=== PATIENT | female | born 1975 | race Caucasian/White ===

== ENCOUNTER 2017-01-04 13:26 | Inpatient (IN) | payer MEDICAID ==
[~2017-01-04] VITALS: Ht 172.7 cm; Wt 68.0 kg
[~2017-01-04 13:26] MED LIST: DIVA500T52 PO; FERR-89 PO; QUET300T2 PO; VITAD1000 PO
[2017-01-04 14:53] VITALS: BP 113/63
[2017-01-04] MEDS ORDERED: LORazepam 2 MG TABLET PO PRN (15:00)
[2017-01-04] MEDS ORDERED: FluPHENAZine HCL 5 MG TABLET PO PRN (15:15)
[2017-01-04 16:32] VITALS: BP 111/63
[2017-01-05 04:16] VITALS: BP 114/78
[2017-01-05] MEDS: FERROUS SULFATE 325 MG EC TABLET PO SCH ×2 (06:41→16:12)
[2017-01-05] MEDS: CHOLECALCIFEROL (VIT D3) 1,000 UNITS TABLET PO SCH (08:41)
[2017-01-05 08:46] VITALS: BP 118/69
[2017-01-05 08:51] LABS: BASOPHILS % (AUTO) 0.6 % (0.0-2.0); EOSINOPHILS % (AUTO) 1.8 % (1.0-6.0); HEMATOCRIT 34.4 % (36-46); HEMOGLOBIN 11.1 g/dL (12.0-16.0); LYMPHOCYTES # (AUTO) 1.5 K/uL (1.0-4.8); LYMPHOCYTES % (AUTO) 31.6 % (22.0-44.0); MEAN CORPUSCULAR HEMOGLOBIN 28.8 pg (26.0-34.0); MEAN CORPUSCULAR HGB CONC 32.4 G/dL (31.0-37.0); MEAN CORPUSCULAR VOLUME 89 fL (80-100); MONOCYTES # (AUTO) 0.8 K/uL (0.1-1.0); MONOCYTES % (AUTO) 16.3 % (2.0-9.0); NEUTROPHILS # (AUTO) 2.4 K/uL (1.8-7.7); NEUTROPHILS % (AUTO) 49.7 % (40.0-70.0); PLATELET COUNT (AUTO) 208 K/uL (150-450); RED BLOOD CELL COUNT(AUTO) 3.86 MIL/uL (4.00-5.20); RED CELL DISTRIBUTION WIDTH 15.9 % (11.5-14.5); WHITE BLOOD COUNT (AUTO) 4.8 K/uL (4.5-11.0)
[2017-01-05 09:42] LABS: ALANINE AMINOTRANSFERASE 23 U/L (12-78); ALBUMIN 3.8 g/dL (3.4-5.0); ANION GAP 7 mmol/L (8-16); ASPARTATE AMINOTRANSFERASE 23 U/L (15-37); BILIRUBIN,TOTAL 0.2 mg/dL (0.1-1.0); CARBON DIOXIDE 30 mmol/L (22-29); CHLORIDE 102 mmol/L (98-107); CREATININE 0.78 mg/dL (0.60-1.30); GLOMERULAR FILTR. RATE CALC > 60 mL/min (>60); POTASSIUM 3.6 mmol/L (3.5-5.1); SODIUM SERUM 139 mmol/L (136-145); TOTAL PROTEIN, SERUM 7.2 g/dL (6.4-8.2); UREA NITROGEN, BLOOD 10 mg/dL (7-18)
[2017-01-05] MEDS ORDERED: IBUPROFEN 400 MG TABLET PO PRN (10:45)
[2017-01-05] MEDS ORDERED: ACETAMINOPHEN 325 MG TABLET PO PRN (10:45)
[2017-01-05] MEDS: NICOTINE 7 MG/24 HOUR PATCH TD SCH (12:23)
[2017-01-05 16:23] VITALS: BP 100/51
[2017-01-05] MEDS ORDERED: FERROUS SULFATE 325 MG EC TABLET PO SCH (17:00)
[2017-01-06] MEDS: FERROUS SULFATE 325 MG EC TABLET PO SCH ×2 (07:00→16:10)
[2017-01-06 07:13] VITALS: BP 148/91
[2017-01-06] MEDS: NICOTINE 7 MG/24 HOUR PATCH TD SCH (09:00)
[2017-01-06] MEDS: CHOLECALCIFEROL (VIT D3) 1,000 UNITS TABLET PO SCH (09:00)
[2017-01-06] MEDS: QUEtiapine FUMARATE 300 MG TABLET PO SCH ×2 (09:00→16:10)
[2017-01-06] MEDS ORDERED: CHOLECALCIFEROL (VIT D3) 1,000 UNITS TABLET PO SCH (09:00)
[2017-01-07] MEDS: FERROUS SULFATE 325 MG EC TABLET PO SCH ×2 (06:53→16:18)
[2017-01-07] MEDS: QUEtiapine FUMARATE 300 MG TABLET PO SCH ×2 (09:00→16:17)
[2017-01-07] MEDS: NICOTINE 7 MG/24 HOUR PATCH TD SCH (09:00)
[2017-01-07] MEDS: CHOLECALCIFEROL (VIT D3) 1,000 UNITS TABLET PO SCH (09:00)
[2017-01-07 18:11] VITALS: BP 112/76
[2017-01-08 06:10] VITALS: BP 109/65
[2017-01-08] MEDS: FERROUS SULFATE 325 MG EC TABLET PO SCH ×2 (06:42→17:12)
[2017-01-08] MEDS: NICOTINE 7 MG/24 HOUR PATCH TD SCH (09:00)
[2017-01-08] MEDS: QUEtiapine FUMARATE 300 MG TABLET PO SCH ×2 (09:11→17:12)
[2017-01-08] MEDS: CHOLECALCIFEROL (VIT D3) 1,000 UNITS TABLET PO SCH (09:11)
[2017-01-09] MEDS: FERROUS SULFATE 325 MG EC TABLET PO SCH (06:43)
[2017-01-09 08:26] VITALS: BP 118/66
[2017-01-09] MEDS: NICOTINE 7 MG/24 HOUR PATCH TD SCH (08:40)
[2017-01-09] MEDS: CHOLECALCIFEROL (VIT D3) 1,000 UNITS TABLET PO SCH (08:44)
[2017-01-09] MEDS: QUEtiapine FUMARATE 300 MG TABLET PO SCH (08:44)
[2017-01-09] MEDS ORDERED: QUET300T2 PO (09:13)
== END 2017-01-09 14:42 | disposition home or self-care (01) | DRG 750 ==
LOC: B3A 15:28
PROVIDERS: ADMIT Psychiatry & Neurology Psychiatry; ATTEND Psychiatry & Neurology Psychiatry
DX: F25.0 Schizoaffective disorder, bipolar type (principal); R45.851 Suicidal ideations; F15.20 Other stimulant dependence, uncomplicated; J45.909 Unspecified asthma, uncomplicated; E55.9 Vitamin D deficiency, unspecified; D64.9 Anemia, unspecified; Z71.51 Drug abuse counseling and surveillance of drug abuser; F17.200 Nicotine dependence, unspecified, uncomplicated; Z62.819 Personal history of unspecified abuse in childhood

== ENCOUNTER 2017-01-25 05:20 | Inpatient (IN) | payer MEDICAID, OTHER ==
[~2017-01-25] VITALS: Ht 170.2 cm; Wt 67.1 kg
[~2017-01-25 05:20] MED LIST changes: -DIVA500T52 PO; -FERR-89 PO; +FERS325 PO
[2017-01-25 05:55] LABS: BASOPHILS # (AUTO) 0.09 K/uL (0.00-0.20); BASOPHILS % (AUTO) 1.2 % (0.0-2.0); EOSINOPHILS # (AUTO) 0.12 K/uL (0.00-0.70); EOSINOPHILS % (AUTO) 1.74 % (1.0-6.0); HEMATOCRIT 31.6 % (36-46); HEMOGLOBIN 10.6 g/dL (12.0-16.0); LYMPHOCYTES % (AUTO) 27.8 % (22.0-44.0); MEAN CORPUSCULAR HEMOGLOBIN 28.9 pg (26.0-34.0); MEAN CORPUSCULAR HGB CONC 33.5 G/dL (31.0-37.0); MEAN CORPUSCULAR VOLUME 86 fL (80-100); MONOCYTES # (AUTO) 0.8 K/uL (0.1-1.0); MONOCYTES % (AUTO) 11.1 % (2.0-9.0); NEUTROPHILS # (AUTO) 4.1 K/uL (1.8-7.7); NEUTROPHILS % (AUTO) 58.1 % (40.0-70.0); PLATELET COUNT (AUTO) 208 K/uL (150-450); RED BLOOD CELL COUNT(AUTO) 3.65 MIL/uL (4.00-5.20); RED CELL DISTRIBUTION WIDTH 14.9 % (11.5-14.5)
[2017-01-25 06:03] LABS: ANION GAP 11 mmol/L (8-16); CALCIUM, TOTAL 8.7 mg/dL (8.8-10.5); CARBON DIOXIDE 28 mmol/L (22-29); CHLORIDE 101 mmol/L (98-107); GLOMERULAR FILTR. RATE CALC > 60 mL/min (>60); POTASSIUM 3.3 mmol/L (3.5-5.1); SODIUM SERUM 140 mmol/L (136-145); UREA NITROGEN, BLOOD 8 mg/dL (7-18)
[2017-01-25 06:11] LABS: ALANINE AMINOTRANSFERASE 24 U/L (12-78); ALBUMIN 3.7 g/dL (3.4-5.0); ASPARTATE AMINOTRANSFERASE 21 U/L (15-37); BILIRUBIN,TOTAL 0.3 mg/dL (0.1-1.0); TOTAL PROTEIN, SERUM 7.7 g/dL (6.4-8.2)
[2017-01-25] MEDS ORDERED: LORazepam 2 MG TABLET PO PRN ×2 (06:15→07:45)
[2017-01-25] MEDS ORDERED: HALOPERIDOL 5 MG TABLET PO PRN ×2 (06:15→07:45)
[2017-01-25] MEDS ORDERED: ZOLPIDEM TARTRATE 10 MG TABLET PO PRN ×2 (06:15→07:45)
[2017-01-25] MEDS ORDERED: LORazepam 2 MG/ML VIAL IM ONE (07:45)
[2017-01-25] MEDS ORDERED: HALOPERIDOL LACTATE 5 MG/ML VIAL IM ONE (07:45)
[2017-01-25 16:10] VITALS: BP 108/80
[2017-01-25] MEDS: QUEtiapine FUMARATE 300 MG TABLET PO SCH (16:26)
[2017-01-25] MEDS ORDERED: POTASSIUM CHLORIDE 20 MEQ ER TABLET PO ONE (20:30)
[2017-01-25] MEDS ORDERED: ACETAMINOPHEN 325 MG TABLET PO PRN (21:30)
[2017-01-25] MEDS ORDERED: ALBUTEROL SULFATE HFA 90 MCG/PUFF 8 GM INHALER IH PRN (21:30)
[2017-01-25] MEDS ORDERED: IBUPROFEN 400 MG TABLET PO PRN (21:30)
[2017-01-26 06:10] VITALS: BP 110/78
[2017-01-26] MEDS: FERROUS SULFATE 325 MG EC TABLET PO SCH ×2 (06:24→15:44)
[2017-01-26] MEDS: QUEtiapine FUMARATE 300 MG TABLET PO SCH ×2 (08:28→15:44)
[2017-01-26] MEDS: CHOLECALCIFEROL (VIT D3) 1,000 UNITS TABLET PO SCH (08:28)
[2017-01-26 08:35] VITALS: BP 121/74
[2017-01-26 16:00] VITALS: BP 114/72
[2017-01-27 06:50] VITALS: BP 111/87
[2017-01-27] MEDS: FERROUS SULFATE 325 MG EC TABLET PO SCH ×2 (07:15→16:22)
[2017-01-27 08:54] VITALS: BP 115/68
[2017-01-27] MEDS: QUEtiapine FUMARATE 300 MG TABLET PO SCH ×2 (09:00→17:00)
[2017-01-27] MEDS: CHOLECALCIFEROL (VIT D3) 1,000 UNITS TABLET PO SCH (09:00)
[2017-01-27 16:05] VITALS: BP 116/70
[2017-01-28] MEDS: FERROUS SULFATE 325 MG EC TABLET PO SCH ×2 (06:33→16:46)
[2017-01-28 06:37] VITALS: BP 119/60
[2017-01-28] MEDS: QUEtiapine FUMARATE 300 MG TABLET PO SCH ×2 (08:23→17:00)
[2017-01-28] MEDS: CHOLECALCIFEROL (VIT D3) 1,000 UNITS TABLET PO SCH (08:23)
[2017-01-28 08:26] VITALS: BP 122/70
[2017-01-28 08:57] LABS: HEMOGLOBIN A1C 5.3 % (4.5-6.2)
[2017-01-28 09:08] LABS: ALANINE AMINOTRANSFERASE 19 U/L (12-78); ALBUMIN 3.8 g/dL (3.4-5.0); ANION GAP 6 mmol/L (8-16); ASPARTATE AMINOTRANSFERASE 17 U/L (15-37); BILIRUBIN,TOTAL 0.2 mg/dL (0.1-1.0); CALCIUM, TOTAL 8.8 mg/dL (8.8-10.5); CARBON DIOXIDE 30 mmol/L (22-29); CHLORIDE 101 mmol/L (98-107); CHOL/HDL RATIO 2.7 (3.9-5.7); CREATININE 0.62 mg/dL (0.60-1.30); GLOMERULAR FILTR. RATE CALC > 60 mL/min (>60); POTASSIUM 4.2 mmol/L (3.5-5.1); SODIUM SERUM 137 mmol/L (136-145); THYROID STIMULATING HORMONE 1.46 uIU/mL (0.36-3.74); TOTAL PROTEIN, SERUM 7.6 g/dL (6.4-8.2); UREA NITROGEN, BLOOD 10 mg/dL (7-18)
[2017-01-28 16:15] VITALS: BP 109/74
[2017-01-29 04:18] VITALS: BP 112/76
[2017-01-29] MEDS: FERROUS SULFATE 325 MG EC TABLET PO SCH ×2 (06:37→16:38)
[2017-01-29] MEDS: CHOLECALCIFEROL (VIT D3) 1,000 UNITS TABLET PO SCH (08:25)
[2017-01-29] MEDS: QUEtiapine FUMARATE 300 MG TABLET PO SCH ×2 (08:25→17:00)
[2017-01-29 16:00] VITALS: BP 101/63
[2017-01-29 16:05] VITALS: BP 103/63
[2017-01-29] MEDS: QUEtiapine FUMARATE 200 MG TABLET PO SCH (21:00)
[2017-01-30 03:44] VITALS: BP 112/63
[2017-01-30] MEDS: FERROUS SULFATE 325 MG EC TABLET PO SCH ×2 (06:47→16:24)
[2017-01-30 08:06] VITALS: BP 139/83
[2017-01-30] MEDS: QUEtiapine FUMARATE 200 MG TABLET PO SCH ×2 (08:33→20:30)
[2017-01-30] MEDS: CHOLECALCIFEROL (VIT D3) 1,000 UNITS TABLET PO SCH (08:34)
[2017-01-30 16:11] VITALS: BP 104/58
[2017-01-31 06:23] VITALS: BP 110/76
[2017-01-31] MEDS: FERROUS SULFATE 325 MG EC TABLET PO SCH ×2 (06:57→16:29)
[2017-01-31] MEDS: CHOLECALCIFEROL (VIT D3) 1,000 UNITS TABLET PO SCH (08:12)
[2017-01-31] MEDS: QUEtiapine FUMARATE 200 MG TABLET PO SCH ×2 (08:12→21:00)
[2017-01-31 16:00] VITALS: BP 105/71
[2017-02-01] MEDS: FERROUS SULFATE 325 MG EC TABLET PO SCH ×2 (06:41→17:03)
[2017-02-01 07:00] VITALS: BP 110/72
[2017-02-01 08:26] VITALS: BP 142/109
[2017-02-01] MEDS: CHOLECALCIFEROL (VIT D3) 1,000 UNITS TABLET PO SCH ×2 (08:43→08:56)
[2017-02-01] MEDS: QUEtiapine FUMARATE 200 MG TABLET PO SCH ×2 (08:43→08:56)
[2017-02-01] MEDS: QUEtiapine FUMARATE 300 MG TABLET PO SCH ×2 (20:11→20:21)
[2017-02-02] MEDS: FERROUS SULFATE 325 MG EC TABLET PO SCH ×2 (06:20→16:06)
[2017-02-02 08:22] VITALS: BP 121/82
[2017-02-02] MEDS: QUEtiapine FUMARATE 200 MG TABLET PO SCH (08:37)
[2017-02-02] MEDS: CHOLECALCIFEROL (VIT D3) 1,000 UNITS TABLET PO SCH (08:37)
[2017-02-02 16:09] VITALS: BP 108/65
[2017-02-02] MEDS: QUEtiapine FUMARATE 300 MG TABLET PO SCH (21:00)
[2017-02-03 05:44] VITALS: BP 117/68
[2017-02-03] MEDS: FERROUS SULFATE 325 MG EC TABLET PO SCH ×2 (06:19→16:17)
[2017-02-03] MEDS: CHOLECALCIFEROL (VIT D3) 1,000 UNITS TABLET PO SCH (08:54)
[2017-02-03] MEDS: VALPROIC ACID 250 MG CAPSULE PO SCH (08:54)
[2017-02-03] MEDS: QUEtiapine FUMARATE 200 MG TABLET PO SCH (08:54)
[2017-02-03 16:03] VITALS: BP 119/76
[2017-02-03] MEDS: QUEtiapine FUMARATE 300 MG TABLET PO SCH (20:56)
[2017-02-04 06:20] VITALS: BP 115/72
[2017-02-04] MEDS: FERROUS SULFATE 325 MG EC TABLET PO SCH ×2 (06:25→16:53)
[2017-02-04] MEDS: VALPROIC ACID 250 MG CAPSULE PO SCH (08:41)
[2017-02-04] MEDS: QUEtiapine FUMARATE 200 MG TABLET PO SCH (08:41)
[2017-02-04] MEDS: CHOLECALCIFEROL (VIT D3) 1,000 UNITS TABLET PO SCH (08:41)
[2017-02-04 08:52] VITALS: BP 113/80
[2017-02-04 16:24] VITALS: BP 111/63
[2017-02-04] MEDS: QUEtiapine FUMARATE 300 MG TABLET PO SCH (20:24)
[2017-02-05 06:29] VITALS: BP 115/65
[2017-02-05] MEDS: FERROUS SULFATE 325 MG EC TABLET PO SCH ×2 (06:42→16:43)
[2017-02-05 08:05] VITALS: BP 115/65
[2017-02-05] MEDS: QUEtiapine FUMARATE 200 MG TABLET PO SCH (08:39)
[2017-02-05] MEDS: VALPROIC ACID 250 MG CAPSULE PO SCH (08:39)
[2017-02-05] MEDS: CHOLECALCIFEROL (VIT D3) 1,000 UNITS TABLET PO SCH (08:39)
[2017-02-05 16:00] VITALS: BP 110/68
[2017-02-05] MEDS: QUEtiapine FUMARATE 300 MG TABLET PO SCH (20:21)
[2017-02-06 06:29] VITALS: BP 116/79
[2017-02-06] MEDS: FERROUS SULFATE 325 MG EC TABLET PO SCH (06:37)
[2017-02-06] MEDS ORDERED: ALBU8HFA IH (08:24)
[2017-02-06] MEDS ORDERED: VALP5L PO (08:24)
[2017-02-06] MEDS ORDERED: QUET200T PO ×2 (08:24)
[2017-02-06 08:31] VITALS: BP 126/81
[2017-02-06] MEDS: QUEtiapine FUMARATE 200 MG TABLET PO SCH (08:50)
[2017-02-06] MEDS: VALPROIC ACID 250 MG CAPSULE PO SCH (08:50)
[2017-02-06] MEDS: CHOLECALCIFEROL (VIT D3) 1,000 UNITS TABLET PO SCH (08:50)
== END 2017-02-06 14:00 | disposition home or self-care (01) | DRG 750 ==
LOC: EMS 05:21 → B3A 06:02
PROVIDERS: ADMIT Psychiatry & Neurology Psychiatry; ATTEND Psychiatry & Neurology Psychiatry
DX: F25.0 Schizoaffective disorder, bipolar type (principal); R45.851 Suicidal ideations; F15.20 Other stimulant dependence, uncomplicated; G80.9 Cerebral palsy, unspecified; J45.909 Unspecified asthma, uncomplicated; E87.6 Hypokalemia; D64.9 Anemia, unspecified; Z62.819 Personal history of unspecified abuse in childhood; F99 Mental disorder, not otherwise specified; F17.210 Nicotine dependence, cigarettes, uncomplicated; Z71.6 Tobacco abuse counseling; Z71.41 Alcohol abuse counseling and surveillance of alcoholic; Z71.51 Drug abuse counseling and surveillance of drug abuser; Z72.89 Other problems related to lifestyle; Z79.51 Long term (current) use of inhaled steroids; Z79.899 Other long term (current) drug therapy
CPT/HCPCS: 83036; 84439; 84443; 96372; 99285; G0480; J1630; J2060

== ENCOUNTER 2017-02-10 17:54 | Inpatient (IN) | payer MEDICAID, OTHER ==
[~2017-02-10] VITALS: Ht 175.3 cm; Wt 83.0 kg
[~2017-02-10 17:54] MED LIST changes: +FERR-89 PO; -FERS325 PO; +QUET200T PO; -QUET300T2 PO; +VALP250S23 PO
[2017-02-10] MEDS ORDERED: QUET300T2 PO (18:57)
[2017-02-10] MEDS ORDERED: HALOPERIDOL LACTATE 5 MG/ML VIAL IM ONE (19:00)
[2017-02-10] MEDS ORDERED: DiphenhydrAMINE HCL 50 MG/ML VIAL ONE (19:00)
[2017-02-10] MEDS ORDERED: LORazepam 2 MG/ML VIAL IM ONE (19:00)
[2017-02-10] MEDS ORDERED: DiphenhydrAMINE HCL 50 MG/ML VIAL IM ONE ×2 (19:00→19:15)
[2017-02-10 20:00] LABS: APPEARANCE,URINE CLOUDY (CLEAR); GLUCOSE, URINE (UA) NEGATIVE (NEGATIVE); KETONES,URINE NEGATIVE (NEGATIVE); LEUKOCYTE ESTERASE ,URINE NEGATIVE (NEGATIVE); OCCULT BLOOD,URINE NEGATIVE (NEGATIVE); PH,URINE 7.5 (5.0-8.0); PROTEIN,URINE NEGATIVE (NEGATIVE)
[2017-02-10 20:01] LABS: ADD UA MICROSCOPIC NO
[2017-02-10 20:20] LABS: ANION GAP 9 mmol/L (8-16); CALCIUM, TOTAL 8.4 mg/dL (8.8-10.5); CARBON DIOXIDE 27 mmol/L (22-29); CHLORIDE 105 mmol/L (98-107); CREATININE 0.74 mg/dL (0.60-1.30); GLOMERULAR FILTR. RATE CALC > 60 mL/min (>60); POTASSIUM 3.3 mmol/L (3.5-5.1); SODIUM SERUM 141 mmol/L (136-145); UREA NITROGEN, BLOOD 10 mg/dL (7-18)
[2017-02-10 20:21] LABS: BASOPHILS % (AUTO) 0.5 % (0.0-2.0); EOSINOPHILS % (AUTO) 0.3 % (1.0-6.0); HEMATOCRIT 31.9 % (36-46); HEMOGLOBIN 10.2 g/dL (12.0-16.0); LYMPHOCYTES # (AUTO) 0.9 K/uL (1.0-4.8); LYMPHOCYTES % (AUTO) 17.7 % (22.0-44.0); MEAN CORPUSCULAR HEMOGLOBIN 27.6 pg (26.0-34.0); MEAN CORPUSCULAR VOLUME 86 fL (80-100); MONOCYTES # (AUTO) 0.5 K/uL (0.1-1.0); MONOCYTES % (AUTO) 10.7 % (2.0-9.0); NEUTROPHILS # (AUTO) 3.7 K/uL (1.8-7.7); NEUTROPHILS % (AUTO) 70.8 % (40.0-70.0); PLATELET COUNT (AUTO) 194 K/uL (150-450); RED BLOOD CELL COUNT(AUTO) 3.69 MIL/uL (4.00-5.20); WHITE BLOOD COUNT (AUTO) 5.2 K/uL (4.5-11.0)
[2017-02-10 20:26] LABS: ALANINE AMINOTRANSFERASE 343 U/L (12-78); ALBUMIN 3.6 g/dL (3.4-5.0); ASPARTATE AMINOTRANSFERASE 368 U/L (15-37); BILIRUBIN,TOTAL 0.2 mg/dL (0.1-1.0); TOTAL PROTEIN, SERUM 7.4 g/dL (6.4-8.2)
[2017-02-10 21:40] VITALS: BP 124/72
[2017-02-10] MEDS ORDERED: POTASSIUM CHLORIDE 20 MEQ ER TABLET PO ONE (22:00)
[2017-02-11 07:18] VITALS: BP 123/66
[2017-02-11] MEDS ORDERED: POTASSIUM CHLORIDE 20 MEQ ER TABLET PO ONE (08:00)
[2017-02-11] MEDS: HALOPERIDOL 5 MG TABLET PO PRN ×2 (12:58→17:29)
[2017-02-11] MEDS: LORazepam 2 MG TABLET PO PRN ×2 (12:58→17:29)
[2017-02-11] MEDS ORDERED: ACETAMINOPHEN 325 MG TABLET PO PRN (20:15)
[2017-02-11] MEDS ORDERED: ALBUTEROL SULFATE HFA 90 MCG/PUFF 8 GM INHALER IH PRN (20:15)
[2017-02-11] MEDS: QUEtiapine FUMARATE 300 MG TABLET PO SCH (20:35)
[2017-02-12] MEDS: FERROUS SULFATE 325 MG EC TABLET PO SCH ×2 (06:49→17:53)
[2017-02-12 08:24] LABS: THYROID STIMULATING HORMONE 2.48 uIU/mL (0.36-3.74)
[2017-02-12 08:26] LABS: HEMOGLOBIN A1C 5.2 % (4.5-6.2)
[2017-02-12] MEDS: QUEtiapine FUMARATE 200 MG TABLET PO SCH (08:45)
[2017-02-12] MEDS: CHOLECALCIFEROL (VIT D3) 1,000 UNITS TABLET PO SCH (08:45)
[2017-02-12] MEDS ORDERED: VALPROIC ACID 250 MG/5 ML SYRUP UDCUP PO SCH (09:00)
[2017-02-12] MEDS: LORazepam 2 MG TABLET PO PRN (09:05)
[2017-02-12 09:58] LABS: CHOL/HDL RATIO 2.2 (3.9-5.7)
[2017-02-12] MEDS ORDERED: DiphenhydrAMINE HCL 50 MG/ML VIAL ONE (12:11)
[2017-02-12] MEDS ORDERED: DiphenhydrAMINE HCL 50 MG/ML VIAL IM ONE ×2 (12:15→16:00)
[2017-02-12 16:00] VITALS: BP 149/106
[2017-02-12 16:05] VITALS: BP 109/89
[2017-02-12 16:20] VITALS: BP 123/75
[2017-02-12 16:30] VITALS: BP 134/66
[2017-02-12 16:45] VITALS: BP 121/89
[2017-02-12] MEDS: BENZTROPINE MESYLATE 0.5 MG TABLET PO SCH (17:53)
[2017-02-12] MEDS: QUEtiapine FUMARATE 300 MG TABLET PO SCH (21:17)
[2017-02-12] MEDS: VALPROIC ACID 250 MG/5 ML SYRUP UDCUP PO SCH (21:17)
[2017-02-13] MEDS: FERROUS SULFATE 325 MG EC TABLET PO SCH ×2 (06:50→17:01)
[2017-02-13 08:18] VITALS: BP 119/69
[2017-02-13] MEDS: CHOLECALCIFEROL (VIT D3) 1,000 UNITS TABLET PO SCH (09:00)
[2017-02-13] MEDS: BENZTROPINE MESYLATE 0.5 MG TABLET PO SCH ×2 (09:00→17:01)
[2017-02-13] MEDS: QUEtiapine FUMARATE 200 MG TABLET PO SCH (09:00)
[2017-02-13 16:26] VITALS: BP 141/72
[2017-02-13] MEDS: QUEtiapine FUMARATE 300 MG TABLET PO SCH (21:00)
[2017-02-13] MEDS: VALPROIC ACID 250 MG/5 ML SYRUP UDCUP PO SCH (21:00)
[2017-02-14 06:17] VITALS: BP 110/76
[2017-02-14] MEDS: FERROUS SULFATE 325 MG EC TABLET PO SCH ×2 (06:45→16:44)
[2017-02-14 08:03] VITALS: BP 112/65
[2017-02-14] MEDS: CHOLECALCIFEROL (VIT D3) 1,000 UNITS TABLET PO SCH (08:32)
[2017-02-14] MEDS: BENZTROPINE MESYLATE 0.5 MG TABLET PO SCH ×2 (08:32→16:44)
[2017-02-14] MEDS: QUEtiapine FUMARATE 200 MG TABLET PO SCH (08:33)
[2017-02-14] MEDS: LORazepam 2 MG TABLET PO PRN (08:33)
[2017-02-14 16:06] VITALS: BP 101/61
[2017-02-14] MEDS: VALPROIC ACID 250 MG/5 ML SYRUP UDCUP PO SCH (20:05)
[2017-02-14] MEDS: QUEtiapine FUMARATE 300 MG TABLET PO SCH (20:05)
[2017-02-15 06:42] VITALS: BP 115/72
[2017-02-15] MEDS: FERROUS SULFATE 325 MG EC TABLET PO SCH ×2 (06:49→16:39)
[2017-02-15] MEDS: BENZTROPINE MESYLATE 0.5 MG TABLET PO SCH ×2 (08:43→16:39)
[2017-02-15] MEDS: CHOLECALCIFEROL (VIT D3) 1,000 UNITS TABLET PO SCH (08:43)
[2017-02-15] MEDS: QUEtiapine FUMARATE 200 MG TABLET PO SCH (08:43)
[2017-02-15 08:58] VITALS: BP 118/71
[2017-02-15 16:24] VITALS: BP 110/68
[2017-02-15] MEDS: VALPROIC ACID 250 MG/5 ML SYRUP UDCUP PO SCH (21:03)
[2017-02-15] MEDS: QUEtiapine FUMARATE 300 MG TABLET PO SCH (21:07)
[2017-02-16] MEDS: FERROUS SULFATE 325 MG EC TABLET PO SCH ×2 (06:49→16:27)
[2017-02-16 06:58] VITALS: BP 130/78
[2017-02-16 08:34] VITALS: BP 109/59
[2017-02-16] MEDS: LORazepam 2 MG TABLET PO PRN (09:42)
[2017-02-16] MEDS: QUEtiapine FUMARATE 200 MG TABLET PO SCH (09:42)
[2017-02-16] MEDS: BENZTROPINE MESYLATE 0.5 MG TABLET PO SCH ×2 (09:42→16:26)
[2017-02-16] MEDS: CHOLECALCIFEROL (VIT D3) 1,000 UNITS TABLET PO SCH (09:42)
[2017-02-16] MEDS: VALPROIC ACID 250 MG/5 ML SYRUP UDCUP PO SCH (20:27)
[2017-02-17 06:11] VITALS: BP 107/65
[2017-02-17] MEDS: FERROUS SULFATE 325 MG EC TABLET PO SCH ×2 (06:24→16:19)
[2017-02-17 08:06] VITALS: BP 103/66
[2017-02-17] MEDS: CHOLECALCIFEROL (VIT D3) 1,000 UNITS TABLET PO SCH (09:39)
[2017-02-17] MEDS: LORazepam 2 MG TABLET PO PRN (09:40)
[2017-02-17] MEDS: ARIPiprazole 10 MG TABLET PO SCH (09:40)
[2017-02-17] MEDS: BENZTROPINE MESYLATE 0.5 MG TABLET PO SCH ×2 (09:40→16:19)
[2017-02-17] MEDS: VALPROIC ACID 250 MG/5 ML SYRUP UDCUP PO SCH (20:23)
[2017-02-18] MEDS: FERROUS SULFATE 325 MG EC TABLET PO SCH ×2 (06:23→16:18)
[2017-02-18 08:23] VITALS: BP 121/73
[2017-02-18] MEDS: ARIPiprazole 10 MG TABLET PO SCH (08:50)
[2017-02-18] MEDS: CHOLECALCIFEROL (VIT D3) 1,000 UNITS TABLET PO SCH (08:50)
[2017-02-18] MEDS: BENZTROPINE MESYLATE 0.5 MG TABLET PO SCH ×2 (08:50→16:19)
[2017-02-18] MEDS: LORazepam 2 MG TABLET PO PRN (08:51)
[2017-02-18 16:00] VITALS: BP 150/86
[2017-02-18] MEDS: VALPROIC ACID 250 MG/5 ML SYRUP UDCUP PO SCH (20:24)
[2017-02-19 03:35] VITALS: BP 136/78
[2017-02-19] MEDS: FERROUS SULFATE 325 MG EC TABLET PO SCH ×2 (06:22→16:03)
[2017-02-19] MEDS: CHOLECALCIFEROL (VIT D3) 1,000 UNITS TABLET PO SCH (08:06)
[2017-02-19] MEDS: ARIPiprazole 10 MG TABLET PO SCH (08:06)
[2017-02-19] MEDS: BENZTROPINE MESYLATE 0.5 MG TABLET PO SCH ×2 (08:06→16:03)
[2017-02-19] MEDS: HALOPERIDOL 5 MG TABLET PO PRN (08:30)
[2017-02-19] MEDS: LORazepam 2 MG TABLET PO PRN (08:30)
[2017-02-19 08:50] VITALS: BP 103/66
[2017-02-19 16:12] VITALS: BP 109/69
[2017-02-19] MEDS: VALPROIC ACID 250 MG/5 ML SYRUP UDCUP PO SCH (20:47)
[2017-02-20 06:03] VITALS: BP 112/71
[2017-02-20] MEDS: FERROUS SULFATE 325 MG EC TABLET PO SCH ×2 (06:25→17:38)
[2017-02-20 08:19] VITALS: BP 110/69
[2017-02-20] MEDS: BENZTROPINE MESYLATE 0.5 MG TABLET PO SCH ×2 (08:51→17:38)
[2017-02-20] MEDS: LORazepam 2 MG TABLET PO PRN (08:51)
[2017-02-20] MEDS: CHOLECALCIFEROL (VIT D3) 1,000 UNITS TABLET PO SCH (08:51)
[2017-02-20] MEDS ORDERED: ARIPiprazole 15 MG TABLET PO SCH (09:00)
[2017-02-20 16:35] VITALS: BP 113/60
[2017-02-20] MEDS: VALPROIC ACID 250 MG/5 ML SYRUP UDCUP PO SCH (20:00)
[2017-02-21 03:56] VITALS: BP 118/69
[2017-02-21] MEDS: FERROUS SULFATE 325 MG EC TABLET PO SCH ×2 (06:28→17:22)
[2017-02-21 08:16] VITALS: BP 114/66
[2017-02-21] MEDS: BENZTROPINE MESYLATE 0.5 MG TABLET PO SCH ×2 (08:38→17:22)
[2017-02-21] MEDS: CHOLECALCIFEROL (VIT D3) 1,000 UNITS TABLET PO SCH (08:38)
[2017-02-21] MEDS: LORazepam 2 MG TABLET PO PRN (08:57)
[2017-02-21] MEDS ORDERED: ARIPiprazole 10 MG TABLET PO SCH (09:00)
[2017-02-21 16:05] VITALS: BP 116/67
[2017-02-21] MEDS: VALPROIC ACID 250 MG/5 ML SYRUP UDCUP PO SCH (21:12)
[2017-02-22] MEDS: FERROUS SULFATE 325 MG EC TABLET PO SCH ×2 (06:28→16:27)
[2017-02-22 06:42] VITALS: BP 100/60
[2017-02-22 08:13] VITALS: BP 108/67
[2017-02-22] MEDS ORDERED: PERMETHRIN 1% 60 ML LOTION TP ONE (09:00)
[2017-02-22] MEDS: CHOLECALCIFEROL (VIT D3) 1,000 UNITS TABLET PO SCH (09:03)
[2017-02-22] MEDS: LORazepam 2 MG TABLET PO PRN (09:03)
[2017-02-22] MEDS: ARIPiprazole 15 MG TABLET PO SCH (09:03)
[2017-02-22] MEDS: BENZTROPINE MESYLATE 0.5 MG TABLET PO SCH ×2 (09:03→16:27)
[2017-02-22 16:22] VITALS: BP 128/88
[2017-02-22] MEDS: VALPROIC ACID 250 MG/5 ML SYRUP UDCUP PO SCH (20:32)
[2017-02-23 06:04] VITALS: BP 101/60
[2017-02-23] MEDS: FERROUS SULFATE 325 MG EC TABLET PO SCH ×2 (06:27→16:36)
[2017-02-23] MEDS: LORazepam 2 MG TABLET PO PRN (08:41)
[2017-02-23] MEDS: CHOLECALCIFEROL (VIT D3) 1,000 UNITS TABLET PO SCH (08:41)
[2017-02-23] MEDS: BENZTROPINE MESYLATE 0.5 MG TABLET PO SCH ×2 (08:41→16:36)
[2017-02-23] MEDS: ARIPiprazole 15 MG TABLET PO SCH (08:41)
[2017-02-23] MEDS ORDERED: PERMETHRIN 1% 60 ML LOTION TP ONE (13:45)
[2017-02-23 16:00] VITALS: BP 131/53
[2017-02-23] MEDS: VALPROIC ACID 250 MG/5 ML SYRUP UDCUP PO SCH (20:21)
[2017-02-24] MEDS: FERROUS SULFATE 325 MG EC TABLET PO SCH ×2 (06:02→16:05)
[2017-02-24 06:38] VITALS: BP 130/76
[2017-02-24 08:11] VITALS: BP 118/69
[2017-02-24] MEDS: ARIPiprazole 15 MG TABLET PO SCH (08:33)
[2017-02-24] MEDS: BENZTROPINE MESYLATE 0.5 MG TABLET PO SCH ×2 (08:34→16:05)
[2017-02-24] MEDS: CHOLECALCIFEROL (VIT D3) 1,000 UNITS TABLET PO SCH (08:34)
[2017-02-24 08:48] LABS: HEMATOCRIT 32.9 % (36-46); HEMOGLOBIN 10.7 g/dL (12.0-16.0); MEAN CORPUSCULAR HEMOGLOBIN 27.4 pg (26.0-34.0); MEAN CORPUSCULAR HGB CONC 32.5 G/dL (31.0-37.0); MEAN CORPUSCULAR VOLUME 84 fL (80-100); PLATELET COUNT (AUTO) 223 K/uL (150-450); RED BLOOD CELL COUNT(AUTO) 3.89 MIL/uL (4.00-5.20); RED CELL DISTRIBUTION WIDTH 17.1 % (11.5-14.5); WHITE BLOOD COUNT (AUTO) 6.5 K/uL (4.5-11.0)
[2017-02-24] MEDS: LORazepam 2 MG TABLET PO PRN (08:50)
[2017-02-24 09:21] LABS: ALANINE AMINOTRANSFERASE 299 U/L (12-78); ANION GAP 7 mmol/L (8-16); ASPARTATE AMINOTRANSFERASE 110 U/L (15-37); BILIRUBIN,TOTAL 0.8 mg/dL (0.1-1.0); CALCIUM, TOTAL 9.1 mg/dL (8.8-10.5); CARBON DIOXIDE 31 mmol/L (22-29); CHLORIDE 100 mmol/L (98-107); CREATININE 0.69 mg/dL (0.60-1.30); GLOMERULAR FILTR. RATE CALC > 60 mL/min (>60); POTASSIUM 3.8 mmol/L (3.5-5.1); SODIUM SERUM 138 mmol/L (136-145); TOTAL PROTEIN, SERUM 7.9 g/dL (6.4-8.2); UREA NITROGEN, BLOOD 11 mg/dL (7-18); VALPROIC ACID 72 mcg/mL (50-100)
[2017-02-24 09:34] LABS: ALBUMIN 3.1 g/dL (3.4-5.0)
[2017-02-24 09:49] LABS: LYMPHOCYTES % (MANUAL) 37 % (22-44); TOTAL CELLS COUNTED 100
[2017-02-24 16:00] VITALS: BP 108/64
[2017-02-24] MEDS: VALPROIC ACID 250 MG/5 ML SYRUP UDCUP PO SCH (20:29)
[2017-02-25 06:06] VITALS: BP 103/59
[2017-02-25] MEDS: FERROUS SULFATE 325 MG EC TABLET PO SCH ×2 (06:15→16:29)
[2017-02-25] MEDS: ARIPiprazole 15 MG TABLET PO SCH (08:26)
[2017-02-25] MEDS: BENZTROPINE MESYLATE 0.5 MG TABLET PO SCH ×2 (08:26→16:29)
[2017-02-25] MEDS: CHOLECALCIFEROL (VIT D3) 1,000 UNITS TABLET PO SCH (08:27)
[2017-02-25] MEDS: LORazepam 2 MG TABLET PO PRN (08:38)
[2017-02-25 09:17] VITALS: BP 106/64
[2017-02-25 16:13] VITALS: BP 111/66
[2017-02-25] MEDS: VALPROIC ACID 250 MG/5 ML SYRUP UDCUP PO SCH (20:23)
[2017-02-26 03:33] VITALS: BP 107/68
[2017-02-26] MEDS: FERROUS SULFATE 325 MG EC TABLET PO SCH ×2 (06:34→16:09)
[2017-02-26 08:49] VITALS: BP 119/59
[2017-02-26] MEDS: LORazepam 2 MG TABLET PO PRN (08:52)
[2017-02-26] MEDS: CHOLECALCIFEROL (VIT D3) 1,000 UNITS TABLET PO SCH (08:52)
[2017-02-26] MEDS: ARIPiprazole 15 MG TABLET PO SCH (08:52)
[2017-02-26] MEDS: BENZTROPINE MESYLATE 0.5 MG TABLET PO SCH ×2 (08:52→16:09)
[2017-02-26 16:00] VITALS: BP 99/61
[2017-02-27 06:30] VITALS: BP 101/71
[2017-02-27] MEDS: FERROUS SULFATE 325 MG EC TABLET PO SCH ×2 (06:52→16:51)
[2017-02-27] MEDS: ARIPiprazole ER SUSPENSION 400 MG PRE-FILLED DUAL CHAMBER SYRINGE IM SCH (08:49)
[2017-02-27] MEDS: ARIPiprazole 15 MG TABLET PO SCH (08:50)
[2017-02-27] MEDS: BENZTROPINE MESYLATE 0.5 MG TABLET PO SCH ×2 (08:50→16:24)
[2017-02-27] MEDS: LORazepam 2 MG TABLET PO PRN (08:50)
[2017-02-27] MEDS: CHOLECALCIFEROL (VIT D3) 1,000 UNITS TABLET PO SCH (08:50)
[2017-02-27 08:57] LABS: ALBUMIN 3.4 g/dL (3.4-5.0); BILIRUBIN,TOTAL 0.6 mg/dL (0.1-1.0); TOTAL PROTEIN, SERUM 8.1 g/dL (6.4-8.2)
[2017-02-27 08:58] LABS: BILIRUBIN,DIRECT 0.3 mg/dL (0.00-0.20)
[2017-02-27 09:11] VITALS: BP 116/59
[2017-02-27 16:05] VITALS: BP 122/68
[2017-02-28 01:57] VITALS: BP 121/63
[2017-02-28] MEDS: FERROUS SULFATE 325 MG EC TABLET PO SCH ×2 (06:37→16:28)
[2017-02-28] MEDS: BENZTROPINE MESYLATE 0.5 MG TABLET PO SCH ×2 (08:23→16:27)
[2017-02-28] MEDS: CHOLECALCIFEROL (VIT D3) 1,000 UNITS TABLET PO SCH (08:23)
[2017-02-28] MEDS: ARIPiprazole 15 MG TABLET PO SCH (08:23)
[2017-02-28 08:35] VITALS: BP 160/80
[2017-02-28] MEDS: LORazepam 2 MG TABLET PO PRN (08:46)
[2017-02-28 16:25] VITALS: BP 135/61
[2017-03-01] MEDS: FERROUS SULFATE 325 MG EC TABLET PO SCH ×2 (06:20→16:26)
[2017-03-01 07:14] VITALS: BP 120/72
[2017-03-01] MEDS: CHOLECALCIFEROL (VIT D3) 1,000 UNITS TABLET PO SCH (08:11)
[2017-03-01] MEDS: ARIPiprazole 15 MG TABLET PO SCH (08:11)
[2017-03-01 08:24] VITALS: BP 117/81
[2017-03-01] MEDS: BENZTROPINE MESYLATE 0.5 MG TABLET PO SCH ×2 (08:33→16:26)
[2017-03-01] MEDS: LORazepam 2 MG TABLET PO PRN ×2 (08:39→17:50)
[2017-03-01] MEDS: NICOTINE 21 MG/24 HOUR PATCH TD SCH (09:55)
[2017-03-01 16:21] VITALS: BP 113/75
[2017-03-02] MEDS: FERROUS SULFATE 325 MG EC TABLET PO SCH ×2 (06:50→16:11)
[2017-03-02 07:19] VITALS: BP 110/72
[2017-03-02 08:19] VITALS: BP 120/65
[2017-03-02] MEDS: CHOLECALCIFEROL (VIT D3) 1,000 UNITS TABLET PO SCH (08:36)
[2017-03-02] MEDS: BENZTROPINE MESYLATE 0.5 MG TABLET PO SCH ×2 (08:37→16:11)
[2017-03-02] MEDS: LORazepam 2 MG TABLET PO PRN (08:37)
[2017-03-02] MEDS: NICOTINE 21 MG/24 HOUR PATCH TD SCH (08:37)
[2017-03-02] MEDS: ARIPiprazole 15 MG TABLET PO SCH (08:37)
[2017-03-02 16:06] VITALS: BP 121/69
[2017-03-02] MEDS ORDERED: IVERMECTIN 3 MG TABLET PO ONE (21:00)
[2017-03-03 06:50] VITALS: BP 118/76
[2017-03-03] MEDS: FERROUS SULFATE 325 MG EC TABLET PO SCH ×2 (06:55→16:23)
[2017-03-03] MEDS: CHOLECALCIFEROL (VIT D3) 1,000 UNITS TABLET PO SCH (08:04)
[2017-03-03] MEDS: BENZTROPINE MESYLATE 0.5 MG TABLET PO SCH ×2 (08:04→16:24)
[2017-03-03] MEDS: NICOTINE 21 MG/24 HOUR PATCH TD SCH (08:04)
[2017-03-03] MEDS: ARIPiprazole 15 MG TABLET PO SCH (08:04)
[2017-03-03 08:47] VITALS: BP 112/78
[2017-03-03] MEDS: LORazepam 2 MG TABLET PO PRN (12:47)
[2017-03-03 16:13] VITALS: BP 128/73
[2017-03-04] MEDS: FERROUS SULFATE 325 MG EC TABLET PO SCH ×2 (06:33→16:08)
[2017-03-04 07:11] VITALS: BP 125/72
[2017-03-04] MEDS: ARIPiprazole 15 MG TABLET PO SCH (08:05)
[2017-03-04] MEDS: BENZTROPINE MESYLATE 0.5 MG TABLET PO SCH ×2 (08:05→16:08)
[2017-03-04] MEDS: NICOTINE 21 MG/24 HOUR PATCH TD SCH (08:05)
[2017-03-04] MEDS: HALOPERIDOL 5 MG TABLET PO PRN (08:05)
[2017-03-04] MEDS: CHOLECALCIFEROL (VIT D3) 1,000 UNITS TABLET PO SCH (08:05)
[2017-03-04] MEDS: LORazepam 2 MG TABLET PO PRN (08:05)
[2017-03-04 16:21] VITALS: BP 121/82
[2017-03-05 03:37] VITALS: BP 120/80
[2017-03-05] MEDS: FERROUS SULFATE 325 MG EC TABLET PO SCH ×2 (06:26→16:51)
[2017-03-05] MEDS: LORazepam 2 MG TABLET PO PRN (07:14)
[2017-03-05 08:38] VITALS: BP 131/83
[2017-03-05] MEDS: NICOTINE 21 MG/24 HOUR PATCH TD SCH (09:06)
[2017-03-05] MEDS: BENZTROPINE MESYLATE 0.5 MG TABLET PO SCH ×2 (10:05→16:51)
[2017-03-05] MEDS: HALOPERIDOL 5 MG TABLET PO PRN (10:05)
[2017-03-05] MEDS: ARIPiprazole 15 MG TABLET PO SCH (10:05)
[2017-03-05] MEDS: CHOLECALCIFEROL (VIT D3) 1,000 UNITS TABLET PO SCH (10:05)
[2017-03-05 16:02] VITALS: BP 129/84
[2017-03-06] MEDS: FERROUS SULFATE 325 MG EC TABLET PO SCH ×2 (06:48→17:26)
[2017-03-06 08:32] VITALS: BP 131/78
[2017-03-06] MEDS: ARIPiprazole 15 MG TABLET PO SCH (08:50)
[2017-03-06] MEDS: NICOTINE 21 MG/24 HOUR PATCH TD SCH (08:50)
[2017-03-06] MEDS: CHOLECALCIFEROL (VIT D3) 1,000 UNITS TABLET PO SCH (08:50)
[2017-03-06] MEDS: BENZTROPINE MESYLATE 0.5 MG TABLET PO SCH ×2 (08:53→17:26)
[2017-03-06] MEDS: LORazepam 2 MG TABLET PO PRN (09:29)
[2017-03-06 16:00] VITALS: BP 119/67
[2017-03-07 05:43] VITALS: BP 127/82
[2017-03-07] MEDS: FERROUS SULFATE 325 MG EC TABLET PO SCH ×2 (06:40→16:36)
[2017-03-07] MEDS: ARIPiprazole 15 MG TABLET PO SCH (08:15)
[2017-03-07] MEDS: BENZTROPINE MESYLATE 0.5 MG TABLET PO SCH ×2 (08:15→16:13)
[2017-03-07] MEDS: NICOTINE 21 MG/24 HOUR PATCH TD SCH (08:16)
[2017-03-07] MEDS: CHOLECALCIFEROL (VIT D3) 1,000 UNITS TABLET PO SCH (08:16)
[2017-03-07 08:32] VITALS: BP 127/82
[2017-03-07 16:10] VITALS: BP 117/80
[2017-03-07] MEDS: LORazepam 2 MG TABLET PO PRN (20:19)
[2017-03-08 06:09] VITALS: BP 133/70
[2017-03-08] MEDS: FERROUS SULFATE 325 MG EC TABLET PO SCH ×2 (06:29→16:41)
[2017-03-08 08:09] VITALS: BP 131/76
[2017-03-08] MEDS: LORazepam 2 MG TABLET PO PRN (09:32)
[2017-03-08] MEDS: ARIPiprazole 15 MG TABLET PO SCH (09:32)
[2017-03-08] MEDS: BENZTROPINE MESYLATE 0.5 MG TABLET PO SCH ×2 (09:32→16:41)
[2017-03-08] MEDS: CHOLECALCIFEROL (VIT D3) 1,000 UNITS TABLET PO SCH (09:32)
[2017-03-08] MEDS: NICOTINE 21 MG/24 HOUR PATCH TD SCH (09:33)
[2017-03-08 16:04] VITALS: BP 128/69
[2017-03-09] MEDS: FERROUS SULFATE 325 MG EC TABLET PO SCH ×2 (06:30→16:56)
[2017-03-09 06:58] VITALS: BP 130/76
[2017-03-09 08:21] VITALS: BP 122/64
[2017-03-09] MEDS: BENZTROPINE MESYLATE 0.5 MG TABLET PO SCH ×2 (08:58→16:56)
[2017-03-09] MEDS: CHOLECALCIFEROL (VIT D3) 1,000 UNITS TABLET PO SCH (08:58)
[2017-03-09] MEDS: ARIPiprazole 15 MG TABLET PO SCH (08:58)
[2017-03-09] MEDS: LORazepam 2 MG TABLET PO PRN (08:58)
[2017-03-09] MEDS: NICOTINE 21 MG/24 HOUR PATCH TD SCH (08:58)
[2017-03-09 16:00] VITALS: BP 129/78
[2017-03-09] MEDS ORDERED: TUBERCULIN, PURIFIED PROTEIN DERIVATIVE 5 TU/0.1 ML SYG ID ONE (18:30)
[2017-03-10] MEDS: FERROUS SULFATE 325 MG EC TABLET PO SCH ×2 (06:42→16:07)
[2017-03-10 07:25] VITALS: BP 123/81
[2017-03-10 08:28] VITALS: BP 120/73
[2017-03-10] MEDS: ARIPiprazole 15 MG TABLET PO SCH (08:36)
[2017-03-10] MEDS: CHOLECALCIFEROL (VIT D3) 1,000 UNITS TABLET PO SCH (08:36)
[2017-03-10] MEDS: BENZTROPINE MESYLATE 0.5 MG TABLET PO SCH ×2 (08:36→16:07)
[2017-03-10] MEDS: NICOTINE 21 MG/24 HOUR PATCH TD SCH (08:37)
[2017-03-10 16:00] VITALS: BP 129/86
[2017-03-11 06:08] VITALS: BP 121/71
[2017-03-11] MEDS: FERROUS SULFATE 325 MG EC TABLET PO SCH ×3 (06:20→17:04)
[2017-03-11] MEDS: BENZTROPINE MESYLATE 0.5 MG TABLET PO SCH ×2 (08:23→16:18)
[2017-03-11] MEDS: ARIPiprazole 15 MG TABLET PO SCH (08:23)
[2017-03-11] MEDS: LORazepam 2 MG TABLET PO PRN (08:24)
[2017-03-11] MEDS: NICOTINE 21 MG/24 HOUR PATCH TD SCH (08:24)
[2017-03-11] MEDS: CHOLECALCIFEROL (VIT D3) 1,000 UNITS TABLET PO SCH (08:24)
[2017-03-11 08:35] VITALS: BP 107/68
[2017-03-11 16:23] VITALS: BP 110/67
[2017-03-12 04:00] VITALS: BP 117/77
[2017-03-12] MEDS: FERROUS SULFATE 325 MG EC TABLET PO SCH ×2 (06:19→16:25)
[2017-03-12] MEDS: BENZTROPINE MESYLATE 0.5 MG TABLET PO SCH ×2 (08:21→16:25)
[2017-03-12] MEDS: NICOTINE 21 MG/24 HOUR PATCH TD SCH (08:21)
[2017-03-12] MEDS: ARIPiprazole 15 MG TABLET PO SCH (08:21)
[2017-03-12] MEDS: CHOLECALCIFEROL (VIT D3) 1,000 UNITS TABLET PO SCH (08:21)
[2017-03-12 08:27] VITALS: BP 118/77
[2017-03-12 16:00] VITALS: BP 110/69
[2017-03-13 06:19] VITALS: BP 112/70
[2017-03-13] MEDS: FERROUS SULFATE 325 MG EC TABLET PO SCH ×2 (06:25→16:55)
[2017-03-13 08:52] VITALS: BP 132/80
[2017-03-13] MEDS: ARIPiprazole 15 MG TABLET PO SCH (09:09)
[2017-03-13] MEDS: NICOTINE 21 MG/24 HOUR PATCH TD SCH (09:09)
[2017-03-13] MEDS: BENZTROPINE MESYLATE 0.5 MG TABLET PO SCH ×2 (09:10→16:28)
[2017-03-13] MEDS: CHOLECALCIFEROL (VIT D3) 1,000 UNITS TABLET PO SCH (09:10)
[2017-03-13] MEDS: LORazepam 2 MG TABLET PO PRN (09:10)
[2017-03-13 16:10] VITALS: BP 108/70
[2017-03-14 03:11] VITALS: BP 112/76
[2017-03-14] MEDS: FERROUS SULFATE 325 MG EC TABLET PO SCH ×2 (06:22→16:39)
[2017-03-14 08:16] VITALS: BP 127/77
[2017-03-14] MEDS: BENZTROPINE MESYLATE 0.5 MG TABLET PO SCH ×2 (08:21→16:39)
[2017-03-14] MEDS: FLUoxetine HCL 20 MG CAPSULE PO SCH (08:21)
[2017-03-14] MEDS: ARIPiprazole 15 MG TABLET PO SCH (08:21)
[2017-03-14] MEDS: CHOLECALCIFEROL (VIT D3) 1,000 UNITS TABLET PO SCH (08:21)
[2017-03-14] MEDS: NICOTINE 21 MG/24 HOUR PATCH TD SCH (08:21)
[2017-03-14] MEDS: LORazepam 2 MG TABLET PO PRN (09:04)
[2017-03-14 16:27] VITALS: BP 116/81
[2017-03-15] MEDS: FERROUS SULFATE 325 MG EC TABLET PO SCH ×2 (06:08→16:17)
[2017-03-15 07:21] VITALS: BP 120/72
[2017-03-15 08:30] VITALS: BP 130/77
[2017-03-15] MEDS: FLUoxetine HCL 20 MG CAPSULE PO SCH (08:57)
[2017-03-15] MEDS: ARIPiprazole 15 MG TABLET PO SCH (08:57)
[2017-03-15] MEDS: BENZTROPINE MESYLATE 0.5 MG TABLET PO SCH ×2 (08:58→16:17)
[2017-03-15] MEDS: CHOLECALCIFEROL (VIT D3) 1,000 UNITS TABLET PO SCH (08:58)
[2017-03-15] MEDS: NICOTINE 21 MG/24 HOUR PATCH TD SCH (08:58)
[2017-03-15 16:14] VITALS: BP 132/72
[2017-03-16 01:41] VITALS: BP 122/68
[2017-03-16] MEDS: FERROUS SULFATE 325 MG EC TABLET PO SCH ×2 (07:00→16:53)
[2017-03-16] MEDS: FLUoxetine HCL 20 MG CAPSULE PO SCH (08:18)
[2017-03-16] MEDS: CHOLECALCIFEROL (VIT D3) 1,000 UNITS TABLET PO SCH (08:18)
[2017-03-16] MEDS: NICOTINE 21 MG/24 HOUR PATCH TD SCH (08:18)
[2017-03-16] MEDS: ARIPiprazole 15 MG TABLET PO SCH (08:18)
[2017-03-16] MEDS: BENZTROPINE MESYLATE 0.5 MG TABLET PO SCH ×2 (08:18→16:13)
[2017-03-16 08:42] VITALS: BP 112/69
[2017-03-16 16:19] VITALS: BP 115/78
[2017-03-17 00:36] VITALS: BP 124/78
[2017-03-17] MEDS: FERROUS SULFATE 325 MG EC TABLET PO SCH ×2 (06:13→16:33)
[2017-03-17 08:05] VITALS: BP 136/81
[2017-03-17] MEDS: NICOTINE 21 MG/24 HOUR PATCH TD SCH (08:28)
[2017-03-17] MEDS: CHOLECALCIFEROL (VIT D3) 1,000 UNITS TABLET PO SCH (08:28)
[2017-03-17] MEDS: FLUoxetine HCL 20 MG CAPSULE PO SCH (08:28)
[2017-03-17] MEDS: ARIPiprazole 15 MG TABLET PO SCH (08:28)
[2017-03-17] MEDS: BENZTROPINE MESYLATE 0.5 MG TABLET PO SCH ×2 (08:28→16:33)
[2017-03-17 16:00] VITALS: BP 117/73
[2017-03-18 06:03] VITALS: BP 134/83
[2017-03-18] MEDS: FERROUS SULFATE 325 MG EC TABLET PO SCH ×2 (06:21→16:22)
[2017-03-18] MEDS: FLUoxetine HCL 20 MG CAPSULE PO SCH (08:35)
[2017-03-18] MEDS: ARIPiprazole 15 MG TABLET PO SCH (08:35)
[2017-03-18] MEDS: CHOLECALCIFEROL (VIT D3) 1,000 UNITS TABLET PO SCH (08:35)
[2017-03-18] MEDS: NICOTINE 21 MG/24 HOUR PATCH TD SCH (08:35)
[2017-03-18] MEDS: BENZTROPINE MESYLATE 0.5 MG TABLET PO SCH ×2 (08:36→16:22)
[2017-03-18 08:56] VITALS: BP 111/70
[2017-03-18 16:00] VITALS: BP 104/83
[2017-03-19] MEDS: FERROUS SULFATE 325 MG EC TABLET PO SCH ×2 (06:25→17:31)
[2017-03-19 07:24] VITALS: BP 110/79
[2017-03-19 08:18] VITALS: BP 123/82
[2017-03-19] MEDS: CHOLECALCIFEROL (VIT D3) 1,000 UNITS TABLET PO SCH (08:49)
[2017-03-19] MEDS: BENZTROPINE MESYLATE 0.5 MG TABLET PO SCH ×2 (08:49→17:31)
[2017-03-19] MEDS: NICOTINE 21 MG/24 HOUR PATCH TD SCH (08:49)
[2017-03-19] MEDS: ARIPiprazole 15 MG TABLET PO SCH (08:49)
[2017-03-19] MEDS: FLUoxetine HCL 20 MG CAPSULE PO SCH (08:49)
[2017-03-19 16:00] VITALS: BP 104/68
[2017-03-20] MEDS: FERROUS SULFATE 325 MG EC TABLET PO SCH ×2 (06:23→16:13)
[2017-03-20 08:45] VITALS: BP 115/67
[2017-03-20] MEDS: ARIPiprazole 15 MG TABLET PO SCH (08:47)
[2017-03-20] MEDS: BENZTROPINE MESYLATE 0.5 MG TABLET PO SCH ×2 (08:47→16:12)
[2017-03-20] MEDS: FLUoxetine HCL 20 MG CAPSULE PO SCH (08:47)
[2017-03-20] MEDS: CHOLECALCIFEROL (VIT D3) 1,000 UNITS TABLET PO SCH (08:47)
[2017-03-20] MEDS: NICOTINE 21 MG/24 HOUR PATCH TD SCH (08:48)
[2017-03-20 16:26] VITALS: BP 117/77
[2017-03-21] MEDS: FERROUS SULFATE 325 MG EC TABLET PO SCH ×2 (06:43→17:04)
[2017-03-21] MEDS: NICOTINE 21 MG/24 HOUR PATCH TD SCH (08:06)
[2017-03-21] MEDS: ARIPiprazole 15 MG TABLET PO SCH (08:06)
[2017-03-21] MEDS: BENZTROPINE MESYLATE 0.5 MG TABLET PO SCH ×2 (08:06→17:04)
[2017-03-21] MEDS: CHOLECALCIFEROL (VIT D3) 1,000 UNITS TABLET PO SCH (08:07)
[2017-03-21] MEDS: FLUoxetine HCL 20 MG CAPSULE PO SCH (08:07)
[2017-03-21 08:18] VITALS: BP 128/71
[2017-03-21 16:19] VITALS: BP 117/76
[2017-03-22] MEDS: FERROUS SULFATE 325 MG EC TABLET PO SCH ×2 (06:40→16:33)
[2017-03-22 08:02] VITALS: BP 120/81
[2017-03-22] MEDS: BENZTROPINE MESYLATE 0.5 MG TABLET PO SCH ×2 (08:10→16:33)
[2017-03-22] MEDS: ARIPiprazole 15 MG TABLET PO SCH (08:10)
[2017-03-22] MEDS: CHOLECALCIFEROL (VIT D3) 1,000 UNITS TABLET PO SCH (08:10)
[2017-03-22] MEDS: NICOTINE 21 MG/24 HOUR PATCH TD SCH (08:10)
[2017-03-22] MEDS: FLUoxetine HCL 20 MG CAPSULE PO SCH (08:10)
[2017-03-22 16:42] VITALS: BP 104/74
[2017-03-22 16:43] VITALS: BP 104/77
[2017-03-23] MEDS: FERROUS SULFATE 325 MG EC TABLET PO SCH ×2 (07:02→16:52)
[2017-03-23 07:10] VITALS: BP 110/76
[2017-03-23] MEDS: ARIPiprazole 15 MG TABLET PO SCH (08:24)
[2017-03-23] MEDS: CHOLECALCIFEROL (VIT D3) 1,000 UNITS TABLET PO SCH (08:24)
[2017-03-23] MEDS: BENZTROPINE MESYLATE 0.5 MG TABLET PO SCH ×2 (08:24→16:52)
[2017-03-23] MEDS: NICOTINE 21 MG/24 HOUR PATCH TD SCH (08:25)
[2017-03-23] MEDS: FLUoxetine HCL 20 MG CAPSULE PO SCH (08:25)
[2017-03-23 08:52] VITALS: BP 102/58
[2017-03-23] MEDS: LORazepam 2 MG TABLET PO PRN ×2 (11:42→16:52)
[2017-03-23 16:16] VITALS: BP 105/70
[2017-03-24 05:25] VITALS: BP 100/61
[2017-03-24] MEDS: FERROUS SULFATE 325 MG EC TABLET PO SCH ×2 (06:35→16:59)
[2017-03-24 08:21] VITALS: BP 112/66
[2017-03-24] MEDS: NICOTINE 21 MG/24 HOUR PATCH TD SCH (10:01)
[2017-03-24] MEDS: CHOLECALCIFEROL (VIT D3) 1,000 UNITS TABLET PO SCH (10:02)
[2017-03-24] MEDS: FLUoxetine HCL 20 MG CAPSULE PO SCH (10:02)
[2017-03-24] MEDS: BENZTROPINE MESYLATE 0.5 MG TABLET PO SCH ×2 (10:02→16:59)
[2017-03-24] MEDS: ARIPiprazole 15 MG TABLET PO SCH (10:02)
[2017-03-24 16:00] VITALS: BP 110/68
[2017-03-25] MEDS: FERROUS SULFATE 325 MG EC TABLET PO SCH ×2 (06:16→16:20)
[2017-03-25 06:30] VITALS: BP 112/66
[2017-03-25 08:58] VITALS: BP 109/63
[2017-03-25] MEDS: CHOLECALCIFEROL (VIT D3) 1,000 UNITS TABLET PO SCH (09:00)
[2017-03-25] MEDS: BENZTROPINE MESYLATE 0.5 MG TABLET PO SCH ×2 (09:00→16:20)
[2017-03-25] MEDS: ARIPiprazole 15 MG TABLET PO SCH (09:00)
[2017-03-25] MEDS: FLUoxetine HCL 20 MG CAPSULE PO SCH (09:01)
[2017-03-25] MEDS: NICOTINE 21 MG/24 HOUR PATCH TD SCH (09:01)
[2017-03-25 16:00] VITALS: BP 121/86
[2017-03-26 03:38] VITALS: BP 120/82
[2017-03-26] MEDS: FERROUS SULFATE 325 MG EC TABLET PO SCH ×2 (06:44→16:20)
[2017-03-26 08:14] VITALS: BP 131/58
[2017-03-26] MEDS: ARIPiprazole 15 MG TABLET PO SCH (08:43)
[2017-03-26] MEDS: CHOLECALCIFEROL (VIT D3) 1,000 UNITS TABLET PO SCH (08:43)
[2017-03-26] MEDS: FLUoxetine HCL 20 MG CAPSULE PO SCH (08:43)
[2017-03-26] MEDS: BENZTROPINE MESYLATE 0.5 MG TABLET PO SCH ×2 (08:43→16:20)
[2017-03-26] MEDS: NICOTINE 21 MG/24 HOUR PATCH TD SCH (08:43)
[2017-03-26 16:18] VITALS: BP 125/60
[2017-03-27 04:54] VITALS: BP_SYST 121; BP_SYST 97; BP_DIAS 70; BP_DIAS 75
[2017-03-27] MEDS: FERROUS SULFATE 325 MG EC TABLET PO SCH ×2 (06:48→16:17)
[2017-03-27 08:20] VITALS: BP 133/65
[2017-03-27] MEDS: CHOLECALCIFEROL (VIT D3) 1,000 UNITS TABLET PO SCH (08:36)
[2017-03-27] MEDS: FLUoxetine HCL 20 MG CAPSULE PO SCH (08:36)
[2017-03-27] MEDS: NICOTINE 21 MG/24 HOUR PATCH TD SCH (08:36)
[2017-03-27] MEDS: BENZTROPINE MESYLATE 0.5 MG TABLET PO SCH ×2 (08:36→16:17)
[2017-03-27] MEDS: ARIPiprazole 15 MG TABLET PO SCH (08:36)
[2017-03-27] MEDS: ARIPiprazole ER SUSPENSION 400 MG PRE-FILLED DUAL CHAMBER SYRINGE IM SCH (09:36)
[2017-03-27 16:42] VITALS: BP 118/72
[2017-03-28 06:33] VITALS: BP 101/60
[2017-03-28] MEDS: FERROUS SULFATE 325 MG EC TABLET PO SCH ×2 (06:39→16:55)
[2017-03-28 08:38] VITALS: BP 107/60
[2017-03-28] MEDS: NICOTINE 21 MG/24 HOUR PATCH TD SCH (09:58)
[2017-03-28] MEDS: CHOLECALCIFEROL (VIT D3) 1,000 UNITS TABLET PO SCH (09:58)
[2017-03-28] MEDS: BENZTROPINE MESYLATE 0.5 MG TABLET PO SCH ×2 (09:58→16:55)
[2017-03-28] MEDS: ARIPiprazole 15 MG TABLET PO SCH (09:59)
[2017-03-28] MEDS: FLUoxetine HCL 20 MG CAPSULE PO SCH (09:59)
[2017-03-28 16:00] VITALS: BP 116/67
[2017-03-29 06:38] VITALS: BP 105/105
[2017-03-29] MEDS: FERROUS SULFATE 325 MG EC TABLET PO SCH ×2 (06:47→17:16)
[2017-03-29] MEDS: NICOTINE 21 MG/24 HOUR PATCH TD SCH (08:36)
[2017-03-29] MEDS: ARIPiprazole 15 MG TABLET PO SCH (08:37)
[2017-03-29] MEDS: CHOLECALCIFEROL (VIT D3) 1,000 UNITS TABLET PO SCH (08:37)
[2017-03-29] MEDS: BENZTROPINE MESYLATE 0.5 MG TABLET PO SCH ×2 (08:37→17:16)
[2017-03-29] MEDS: LORazepam 2 MG TABLET PO PRN (08:37)
[2017-03-29] MEDS: FLUoxetine HCL 20 MG CAPSULE PO SCH (08:37)
[2017-03-29 08:52] VITALS: BP 114/73
[2017-03-29 16:41] VITALS: BP 111/68
[2017-03-30] MEDS: FERROUS SULFATE 325 MG EC TABLET PO SCH ×2 (06:41→16:40)
[2017-03-30 08:43] VITALS: BP 105/64
[2017-03-30] MEDS: FLUoxetine HCL 20 MG CAPSULE PO SCH (09:29)
[2017-03-30] MEDS: ARIPiprazole 15 MG TABLET PO SCH (09:29)
[2017-03-30] MEDS: CHOLECALCIFEROL (VIT D3) 1,000 UNITS TABLET PO SCH (09:29)
[2017-03-30] MEDS: BENZTROPINE MESYLATE 0.5 MG TABLET PO SCH ×2 (09:29→16:40)
[2017-03-30] MEDS: NICOTINE 21 MG/24 HOUR PATCH TD SCH (09:30)
[2017-03-30 17:07] VITALS: BP 106/67
[2017-03-31 05:35] VITALS: BP 102/64
[2017-03-31] MEDS: FERROUS SULFATE 325 MG EC TABLET PO SCH ×2 (06:13→17:07)
[2017-03-31 08:14] VITALS: BP 108/60
[2017-03-31] MEDS: BENZTROPINE MESYLATE 0.5 MG TABLET PO SCH ×2 (09:41→17:07)
[2017-03-31] MEDS: NICOTINE 21 MG/24 HOUR PATCH TD SCH (09:41)
[2017-03-31] MEDS: CHOLECALCIFEROL (VIT D3) 1,000 UNITS TABLET PO SCH (09:42)
[2017-03-31] MEDS: FLUoxetine HCL 20 MG CAPSULE PO SCH (09:42)
[2017-03-31] MEDS: ARIPiprazole 15 MG TABLET PO SCH (09:42)
[2017-03-31 17:30] VITALS: BP 100/62
[2017-04-01] MEDS: FERROUS SULFATE 325 MG EC TABLET PO SCH ×2 (06:21→16:41)
[2017-04-01 06:30] VITALS: BP 104/67
[2017-04-01] MEDS: ARIPiprazole 15 MG TABLET PO SCH (08:40)
[2017-04-01] MEDS: FLUoxetine HCL 20 MG CAPSULE PO SCH (08:40)
[2017-04-01] MEDS: CHOLECALCIFEROL (VIT D3) 1,000 UNITS TABLET PO SCH (08:40)
[2017-04-01] MEDS: NICOTINE 21 MG/24 HOUR PATCH TD SCH (08:40)
[2017-04-01] MEDS: BENZTROPINE MESYLATE 0.5 MG TABLET PO SCH ×2 (08:40→16:40)
[2017-04-01 09:07] VITALS: BP 102/61
[2017-04-01 16:30] VITALS: BP 103/68
[2017-04-02] MEDS: FERROUS SULFATE 325 MG EC TABLET PO SCH ×2 (06:33→16:55)
[2017-04-02 06:34] VITALS: BP 104/63
[2017-04-02 08:40] VITALS: BP 109/64
[2017-04-02] MEDS: BENZTROPINE MESYLATE 0.5 MG TABLET PO SCH ×2 (09:50→16:55)
[2017-04-02] MEDS: NICOTINE 21 MG/24 HOUR PATCH TD SCH (09:50)
[2017-04-02] MEDS: CHOLECALCIFEROL (VIT D3) 1,000 UNITS TABLET PO SCH (09:50)
[2017-04-02] MEDS: ARIPiprazole 15 MG TABLET PO SCH (09:50)
[2017-04-02] MEDS: FLUoxetine HCL 20 MG CAPSULE PO SCH (09:51)
[2017-04-02 16:48] VITALS: BP 111/67
[2017-04-03 05:54] VITALS: BP 112/71
[2017-04-03] MEDS: FERROUS SULFATE 325 MG EC TABLET PO SCH ×2 (06:41→17:06)
[2017-04-03 08:20] VITALS: BP 116/59
[2017-04-03] MEDS: CHOLECALCIFEROL (VIT D3) 1,000 UNITS TABLET PO SCH (09:25)
[2017-04-03] MEDS: ARIPiprazole 15 MG TABLET PO SCH (09:25)
[2017-04-03] MEDS: BENZTROPINE MESYLATE 0.5 MG TABLET PO SCH ×2 (09:25→17:06)
[2017-04-03] MEDS: FLUoxetine HCL 20 MG CAPSULE PO SCH (09:25)
[2017-04-03] MEDS: NICOTINE 21 MG/24 HOUR PATCH TD SCH (09:26)
[2017-04-03 16:27] VITALS: BP 96/55
[2017-04-04] MEDS: FERROUS SULFATE 325 MG EC TABLET PO SCH ×2 (06:23→16:56)
[2017-04-04 06:45] VITALS: BP 121/68
[2017-04-04 09:01] VITALS: BP 119/67
[2017-04-04] MEDS: CHOLECALCIFEROL (VIT D3) 1,000 UNITS TABLET PO SCH (09:30)
[2017-04-04] MEDS: ARIPiprazole 15 MG TABLET PO SCH (09:30)
[2017-04-04] MEDS: FLUoxetine HCL 20 MG CAPSULE PO SCH (09:30)
[2017-04-04] MEDS: BENZTROPINE MESYLATE 0.5 MG TABLET PO SCH ×2 (09:30→16:56)
[2017-04-04] MEDS: NICOTINE 21 MG/24 HOUR PATCH TD SCH (09:32)
[2017-04-04 16:25] VITALS: BP 121/60
[2017-04-05] MEDS: FERROUS SULFATE 325 MG EC TABLET PO SCH ×2 (06:44→16:52)
[2017-04-05 07:10] VITALS: BP 125/63
[2017-04-05] MEDS: BENZTROPINE MESYLATE 0.5 MG TABLET PO SCH ×2 (09:00→16:52)
[2017-04-05] MEDS: CHOLECALCIFEROL (VIT D3) 1,000 UNITS TABLET PO SCH (09:00)
[2017-04-05] MEDS: NICOTINE 21 MG/24 HOUR PATCH TD SCH (09:00)
[2017-04-05] MEDS: FLUoxetine HCL 20 MG CAPSULE PO SCH (09:00)
[2017-04-05 12:51] VITALS: BP 105/65
[2017-04-05 18:01] VITALS: BP 118/70
[2017-04-06] MEDS: FERROUS SULFATE 325 MG EC TABLET PO SCH ×2 (06:30→16:55)
[2017-04-06 06:38] VITALS: BP 124/73
[2017-04-06] MEDS: NICOTINE 21 MG/24 HOUR PATCH TD SCH (08:29)
[2017-04-06] MEDS: BENZTROPINE MESYLATE 0.5 MG TABLET PO SCH ×2 (08:29→16:55)
[2017-04-06] MEDS: CHOLECALCIFEROL (VIT D3) 1,000 UNITS TABLET PO SCH (08:29)
[2017-04-06] MEDS: FLUoxetine HCL 20 MG CAPSULE PO SCH (08:29)
[2017-04-06 08:35] VITALS: BP 145/99
[2017-04-06 18:56] VITALS: BP 119/65
[2017-04-07 05:56] VITALS: BP 116/63
[2017-04-07] MEDS: FERROUS SULFATE 325 MG EC TABLET PO SCH ×2 (06:11→16:26)
[2017-04-07] MEDS: NICOTINE 21 MG/24 HOUR PATCH TD SCH (09:24)
[2017-04-07] MEDS: CHOLECALCIFEROL (VIT D3) 1,000 UNITS TABLET PO SCH (09:24)
[2017-04-07] MEDS: BENZTROPINE MESYLATE 0.5 MG TABLET PO SCH ×2 (09:24→16:26)
[2017-04-07] MEDS: FLUoxetine HCL 20 MG CAPSULE PO SCH (09:24)
[2017-04-07 09:28] VITALS: BP 137/70
[2017-04-07 18:49] VITALS: BP 115/69
[2017-04-08 05:31] VITALS: BP 102/66
[2017-04-08] MEDS: FERROUS SULFATE 325 MG EC TABLET PO SCH ×2 (06:14→17:14)
[2017-04-08 08:32] VITALS: BP 124/60
[2017-04-08] MEDS: CHOLECALCIFEROL (VIT D3) 1,000 UNITS TABLET PO SCH (09:54)
[2017-04-08] MEDS: BENZTROPINE MESYLATE 0.5 MG TABLET PO SCH ×2 (09:54→17:14)
[2017-04-08] MEDS: FLUoxetine HCL 20 MG CAPSULE PO SCH (09:54)
[2017-04-08] MEDS: NICOTINE 21 MG/24 HOUR PATCH TD SCH (09:55)
[2017-04-08 16:14] VITALS: BP 108/68
[2017-04-09 06:09] VITALS: BP 100/61
[2017-04-09] MEDS: FERROUS SULFATE 325 MG EC TABLET PO SCH ×2 (06:28→16:59)
[2017-04-09] MEDS: FLUoxetine HCL 20 MG CAPSULE PO SCH (08:25)
[2017-04-09] MEDS: CHOLECALCIFEROL (VIT D3) 1,000 UNITS TABLET PO SCH (08:25)
[2017-04-09] MEDS: BENZTROPINE MESYLATE 0.5 MG TABLET PO SCH ×2 (08:25→16:59)
[2017-04-09] MEDS: NICOTINE 21 MG/24 HOUR PATCH TD SCH (08:26)
[2017-04-09 08:51] VITALS: BP 102/64
[2017-04-09 16:12] VITALS: BP 101/69
[2017-04-10] MEDS: FERROUS SULFATE 325 MG EC TABLET PO SCH ×2 (06:20→16:11)
[2017-04-10 06:26] VITALS: BP 103/60
[2017-04-10 08:19] VITALS: BP 114/66
[2017-04-10] MEDS: FLUoxetine HCL 20 MG CAPSULE PO SCH (08:53)
[2017-04-10] MEDS: CHOLECALCIFEROL (VIT D3) 1,000 UNITS TABLET PO SCH (08:53)
[2017-04-10] MEDS: BENZTROPINE MESYLATE 0.5 MG TABLET PO SCH ×2 (08:53→16:11)
[2017-04-10] MEDS: NICOTINE 21 MG/24 HOUR PATCH TD SCH (08:53)
[2017-04-10 16:15] VITALS: BP 106/56
[2017-04-11] MEDS: FERROUS SULFATE 325 MG EC TABLET PO SCH ×2 (06:21→16:32)
[2017-04-11 06:43] VITALS: BP 110/63
[2017-04-11] MEDS: FLUoxetine HCL 20 MG CAPSULE PO SCH (08:26)
[2017-04-11] MEDS: NICOTINE 21 MG/24 HOUR PATCH TD SCH (08:26)
[2017-04-11] MEDS: CHOLECALCIFEROL (VIT D3) 1,000 UNITS TABLET PO SCH (08:27)
[2017-04-11] MEDS: BENZTROPINE MESYLATE 0.5 MG TABLET PO SCH ×2 (08:27→16:32)
[2017-04-11 08:43] VITALS: BP 115/65
[2017-04-11 16:32] VITALS: BP 104/64
[2017-04-12 05:55] VITALS: BP 102/62
[2017-04-12] MEDS: FERROUS SULFATE 325 MG EC TABLET PO SCH ×2 (06:18→17:08)
[2017-04-12] MEDS: BENZTROPINE MESYLATE 0.5 MG TABLET PO SCH ×2 (08:13→17:08)
[2017-04-12] MEDS: NICOTINE 21 MG/24 HOUR PATCH TD SCH (08:13)
[2017-04-12] MEDS: CHOLECALCIFEROL (VIT D3) 1,000 UNITS TABLET PO SCH (08:13)
[2017-04-12] MEDS: FLUoxetine HCL 20 MG CAPSULE PO SCH (08:13)
[2017-04-12 08:56] VITALS: BP 100/55
[2017-04-12] MEDS: IBUPROFEN 400 MG TABLET PO PRN (10:41)
[2017-04-12 16:33] VITALS: BP 100/65
[2017-04-13 06:43] VITALS: BP 100/61
[2017-04-13] MEDS: FERROUS SULFATE 325 MG EC TABLET PO SCH ×2 (06:59→16:18)
[2017-04-13 08:47] VITALS: BP 121/74
[2017-04-13] MEDS: CHOLECALCIFEROL (VIT D3) 1,000 UNITS TABLET PO SCH (09:00)
[2017-04-13] MEDS: BENZTROPINE MESYLATE 0.5 MG TABLET PO SCH ×2 (09:00→16:19)
[2017-04-13] MEDS: NICOTINE 21 MG/24 HOUR PATCH TD SCH (09:00)
[2017-04-13] MEDS: FLUoxetine HCL 20 MG CAPSULE PO SCH (09:00)
[2017-04-13 14:49] VITALS: BP 112/75
[2017-04-13 14:50] VITALS: BP 112/75
[2017-04-13] MEDS: IBUPROFEN 400 MG TABLET PO PRN (14:53)
[2017-04-13] MEDS: NEOMYCIN/BACITRACIN/POLYMYXIN B 30 GM OINTMENT TP SCH (17:00)
[2017-04-13 17:39] VITALS: BP 117/65
[2017-04-14 06:00] VITALS: BP 104/66
[2017-04-14] MEDS: FERROUS SULFATE 325 MG EC TABLET PO SCH ×2 (06:41→16:16)
[2017-04-14] MEDS: NEOMYCIN/BACITRACIN/POLYMYXIN B 30 GM OINTMENT TP SCH ×2 (08:23→17:19)
[2017-04-14] MEDS: HALOPERIDOL 5 MG TABLET PO PRN (08:23)
[2017-04-14] MEDS: CHOLECALCIFEROL (VIT D3) 1,000 UNITS TABLET PO SCH (08:24)
[2017-04-14] MEDS: NICOTINE 21 MG/24 HOUR PATCH TD SCH (08:24)
[2017-04-14] MEDS: BENZTROPINE MESYLATE 0.5 MG TABLET PO SCH ×2 (08:24→16:16)
[2017-04-14] MEDS: FLUoxetine HCL 20 MG CAPSULE PO SCH (08:24)
[2017-04-14 08:44] VITALS: BP 106/69
[2017-04-14 16:15] VITALS: BP 109/75
[2017-04-15 05:48] VITALS: BP 128/72
[2017-04-15] MEDS: FERROUS SULFATE 325 MG EC TABLET PO SCH ×2 (06:26→17:13)
[2017-04-15] MEDS: NICOTINE 21 MG/24 HOUR PATCH TD SCH (08:18)
[2017-04-15] MEDS: CHOLECALCIFEROL (VIT D3) 1,000 UNITS TABLET PO SCH (08:18)
[2017-04-15] MEDS: BENZTROPINE MESYLATE 0.5 MG TABLET PO SCH ×2 (08:18→17:13)
[2017-04-15] MEDS: NEOMYCIN/BACITRACIN/POLYMYXIN B 30 GM OINTMENT TP SCH ×2 (08:18→17:13)
[2017-04-15] MEDS: FLUoxetine HCL 20 MG CAPSULE PO SCH (08:18)
[2017-04-15 11:26] VITALS: BP 105/67
[2017-04-15 16:14] VITALS: BP 109/66
[2017-04-16 06:03] VITALS: BP 111/61
[2017-04-16] MEDS: FERROUS SULFATE 325 MG EC TABLET PO SCH ×2 (06:20→16:52)
[2017-04-16] MEDS: FLUoxetine HCL 20 MG CAPSULE PO SCH (08:13)
[2017-04-16] MEDS: BENZTROPINE MESYLATE 0.5 MG TABLET PO SCH ×2 (08:13→16:53)
[2017-04-16] MEDS: CHOLECALCIFEROL (VIT D3) 1,000 UNITS TABLET PO SCH (08:13)
[2017-04-16] MEDS: NICOTINE 21 MG/24 HOUR PATCH TD SCH (08:13)
[2017-04-16] MEDS: NEOMYCIN/BACITRACIN/POLYMYXIN B 30 GM OINTMENT TP SCH ×2 (08:14→16:53)
[2017-04-16 08:44] VITALS: BP 109/69
[2017-04-16 16:49] VITALS: BP 101/61
[2017-04-17 05:45] VITALS: BP 117/63
[2017-04-17] MEDS: FERROUS SULFATE 325 MG EC TABLET PO SCH ×2 (06:39→16:27)
[2017-04-17] MEDS: NEOMYCIN/BACITRACIN/POLYMYXIN B 30 GM OINTMENT TP SCH ×2 (08:04→16:55)
[2017-04-17] MEDS: BENZTROPINE MESYLATE 0.5 MG TABLET PO SCH ×2 (08:04→16:27)
[2017-04-17] MEDS: CHOLECALCIFEROL (VIT D3) 1,000 UNITS TABLET PO SCH (08:04)
[2017-04-17] MEDS: NICOTINE 21 MG/24 HOUR PATCH TD SCH (08:05)
[2017-04-17] MEDS: FLUoxetine HCL 20 MG CAPSULE PO SCH (08:05)
[2017-04-17 08:46] VITALS: BP 121/69
[2017-04-17 16:44] VITALS: BP 100/63
[2017-04-18 05:29] VITALS: BP 101/61
[2017-04-18] MEDS: FERROUS SULFATE 325 MG EC TABLET PO SCH ×2 (06:51→16:42)
[2017-04-18 08:12] VITALS: BP 108/59
[2017-04-18] MEDS: NEOMYCIN/BACITRACIN/POLYMYXIN B 30 GM OINTMENT TP SCH ×2 (09:22→16:43)
[2017-04-18] MEDS: NICOTINE 21 MG/24 HOUR PATCH TD SCH (09:22)
[2017-04-18] MEDS: CHOLECALCIFEROL (VIT D3) 1,000 UNITS TABLET PO SCH (09:22)
[2017-04-18] MEDS: FLUoxetine HCL 20 MG CAPSULE PO SCH (09:22)
[2017-04-18] MEDS: BENZTROPINE MESYLATE 0.5 MG TABLET PO SCH ×2 (09:22→16:42)
[2017-04-18 16:21] VITALS: BP 106/64
[2017-04-19 06:28] VITALS: BP 101/61
[2017-04-19] MEDS: FERROUS SULFATE 325 MG EC TABLET PO SCH ×2 (06:45→16:27)
[2017-04-19] MEDS: FLUoxetine HCL 20 MG CAPSULE PO SCH (08:33)
[2017-04-19] MEDS: NEOMYCIN/BACITRACIN/POLYMYXIN B 30 GM OINTMENT TP SCH ×2 (08:33→16:27)
[2017-04-19] MEDS: NICOTINE 21 MG/24 HOUR PATCH TD SCH (08:33)
[2017-04-19] MEDS: CHOLECALCIFEROL (VIT D3) 1,000 UNITS TABLET PO SCH (08:33)
[2017-04-19] MEDS: BENZTROPINE MESYLATE 0.5 MG TABLET PO SCH ×2 (08:33→16:27)
[2017-04-19 08:42] VITALS: BP 108/57
[2017-04-19 16:12] VITALS: BP 104/74
[2017-04-20 06:11] VITALS: BP 104/65
[2017-04-20] MEDS: FERROUS SULFATE 325 MG EC TABLET PO SCH ×2 (06:41→16:34)
[2017-04-20] MEDS: NEOMYCIN/BACITRACIN/POLYMYXIN B 30 GM OINTMENT TP SCH ×2 (08:19→16:35)
[2017-04-20] MEDS: NICOTINE 21 MG/24 HOUR PATCH TD SCH (08:19)
[2017-04-20] MEDS: BENZTROPINE MESYLATE 0.5 MG TABLET PO SCH ×2 (08:19→16:34)
[2017-04-20] MEDS: FLUoxetine HCL 20 MG CAPSULE PO SCH (08:19)
[2017-04-20] MEDS: CHOLECALCIFEROL (VIT D3) 1,000 UNITS TABLET PO SCH (08:19)
[2017-04-20 08:32] VITALS: BP 104/61
[2017-04-20] MEDS: IBUPROFEN 400 MG TABLET PO PRN (12:55)
[2017-04-20 12:59] VITALS: BP 106/62
[2017-04-20 13:59] VITALS: BP 110/64
[2017-04-20 16:32] VITALS: BP 108/71
[2017-04-21] MEDS: FERROUS SULFATE 325 MG EC TABLET PO SCH ×2 (06:44→16:51)
[2017-04-21 06:56] VITALS: BP 105/73
[2017-04-21 08:28] VITALS: BP 135/84
[2017-04-21] MEDS: CHOLECALCIFEROL (VIT D3) 1,000 UNITS TABLET PO SCH (08:45)
[2017-04-21] MEDS: BENZTROPINE MESYLATE 0.5 MG TABLET PO SCH ×2 (08:45→16:51)
[2017-04-21] MEDS: NICOTINE 21 MG/24 HOUR PATCH TD SCH (08:46)
[2017-04-21] MEDS: FLUoxetine HCL 20 MG CAPSULE PO SCH (08:46)
[2017-04-21] MEDS: NEOMYCIN/BACITRACIN/POLYMYXIN B 30 GM OINTMENT TP SCH ×2 (08:48→16:52)
[2017-04-21 16:14] VITALS: BP 116/80
[2017-04-21] MEDS: IBUPROFEN 400 MG TABLET PO PRN (16:58)
[2017-04-22 06:16] VITALS: BP 102/67
[2017-04-22] MEDS: FERROUS SULFATE 325 MG EC TABLET PO SCH ×2 (06:21→16:44)
[2017-04-22] MEDS: NICOTINE 21 MG/24 HOUR PATCH TD SCH (08:01)
[2017-04-22 08:02] VITALS: BP 113/63
[2017-04-22] MEDS: IBUPROFEN 400 MG TABLET PO PRN (08:02)
[2017-04-22] MEDS: CHOLECALCIFEROL (VIT D3) 1,000 UNITS TABLET PO SCH (08:02)
[2017-04-22] MEDS: FLUoxetine HCL 20 MG CAPSULE PO SCH (08:02)
[2017-04-22] MEDS: BENZTROPINE MESYLATE 0.5 MG TABLET PO SCH ×2 (08:03→16:44)
[2017-04-22] MEDS: NEOMYCIN/BACITRACIN/POLYMYXIN B 30 GM OINTMENT TP SCH ×2 (08:47→16:44)
[2017-04-22 16:09] VITALS: BP 110/70
[2017-04-23 01:03] VITALS: BP 101/64
[2017-04-23] MEDS: IBUPROFEN 400 MG TABLET PO PRN (01:05)
[2017-04-23] MEDS: FERROUS SULFATE 325 MG EC TABLET PO SCH ×2 (06:22→16:53)
[2017-04-23 08:12] VITALS: BP 108/68
[2017-04-23] MEDS: BENZTROPINE MESYLATE 0.5 MG TABLET PO SCH ×2 (08:17→16:53)
[2017-04-23] MEDS: FLUoxetine HCL 20 MG CAPSULE PO SCH (08:17)
[2017-04-23] MEDS: CHOLECALCIFEROL (VIT D3) 1,000 UNITS TABLET PO SCH (08:17)
[2017-04-23] MEDS: NEOMYCIN/BACITRACIN/POLYMYXIN B 30 GM OINTMENT TP SCH ×2 (08:19→16:53)
[2017-04-23] MEDS: NICOTINE 21 MG/24 HOUR PATCH TD SCH (08:19)
[2017-04-23 18:59] VITALS: BP 107/70
[2017-04-24 03:50] VITALS: BP 105/66
[2017-04-24] MEDS: FERROUS SULFATE 325 MG EC TABLET PO SCH ×2 (06:27→16:49)
[2017-04-24] MEDS: FLUoxetine HCL 20 MG CAPSULE PO SCH (08:34)
[2017-04-24] MEDS: BENZTROPINE MESYLATE 0.5 MG TABLET PO SCH ×2 (08:34→16:51)
[2017-04-24] MEDS: CHOLECALCIFEROL (VIT D3) 1,000 UNITS TABLET PO SCH (08:34)
[2017-04-24] MEDS: NICOTINE 21 MG/24 HOUR PATCH TD SCH (08:35)
[2017-04-24 08:57] VITALS: BP 115/67
[2017-04-24] MEDS: ARIPiprazole ER SUSPENSION 400 MG PRE-FILLED DUAL CHAMBER SYRINGE IM SCH (09:42)
[2017-04-24 16:00] VITALS: BP 104/67
[2017-04-25 06:24] VITALS: BP 100/59
[2017-04-25] MEDS: FERROUS SULFATE 325 MG EC TABLET PO SCH ×2 (06:39→16:44)
[2017-04-25] MEDS: BENZTROPINE MESYLATE 0.5 MG TABLET PO SCH ×2 (08:59→16:44)
[2017-04-25] MEDS: NICOTINE 21 MG/24 HOUR PATCH TD SCH (08:59)
[2017-04-25] MEDS: FLUoxetine HCL 20 MG CAPSULE PO SCH (08:59)
[2017-04-25] MEDS: CHOLECALCIFEROL (VIT D3) 1,000 UNITS TABLET PO SCH (08:59)
[2017-04-25 09:06] VITALS: BP 106/66
[2017-04-25 16:02] VITALS: BP 104/69
[2017-04-26 06:03] VITALS: BP 105/70
[2017-04-26] MEDS: FERROUS SULFATE 325 MG EC TABLET PO SCH ×2 (07:07→16:51)
[2017-04-26 08:48] VITALS: BP 95/66
[2017-04-26] MEDS: NICOTINE 21 MG/24 HOUR PATCH TD SCH (09:44)
[2017-04-26] MEDS: BENZTROPINE MESYLATE 0.5 MG TABLET PO SCH ×2 (09:44→16:51)
[2017-04-26] MEDS: FLUoxetine HCL 20 MG CAPSULE PO SCH (09:44)
[2017-04-26] MEDS: CHOLECALCIFEROL (VIT D3) 1,000 UNITS TABLET PO SCH (09:44)
[2017-04-26 16:19] VITALS: BP 108/65
[2017-04-27 00:14] VITALS: BP 103/63
[2017-04-27 06:07] VITALS: BP 105/64
[2017-04-27] MEDS: FERROUS SULFATE 325 MG EC TABLET PO SCH ×2 (06:41→16:57)
[2017-04-27 08:14] VITALS: BP 103/63
[2017-04-27] MEDS: BENZTROPINE MESYLATE 0.5 MG TABLET PO SCH ×2 (08:28→16:57)
[2017-04-27] MEDS: CHOLECALCIFEROL (VIT D3) 1,000 UNITS TABLET PO SCH (08:28)
[2017-04-27] MEDS: FLUoxetine HCL 20 MG CAPSULE PO SCH (08:28)
[2017-04-27] MEDS: NICOTINE 21 MG/24 HOUR PATCH TD SCH (08:28)
[2017-04-27 17:50] VITALS: BP 110/78
[2017-04-27] MEDS: IBUPROFEN 400 MG TABLET PO PRN (18:21)
[2017-04-27 18:22] VITALS: BP 112/69
[2017-04-28 06:26] VITALS: BP 100/71
[2017-04-28] MEDS: FERROUS SULFATE 325 MG EC TABLET PO SCH ×2 (06:46→16:52)
[2017-04-28] MEDS: NICOTINE 21 MG/24 HOUR PATCH TD SCH (08:13)
[2017-04-28] MEDS: FLUoxetine HCL 20 MG CAPSULE PO SCH (08:13)
[2017-04-28] MEDS: BENZTROPINE MESYLATE 0.5 MG TABLET PO SCH ×2 (08:13→16:53)
[2017-04-28] MEDS: CHOLECALCIFEROL (VIT D3) 1,000 UNITS TABLET PO SCH (08:13)
[2017-04-28 10:57] VITALS: BP 111/77
[2017-04-28 17:00] VITALS: BP 115/60
[2017-04-29 06:23] VITALS: BP 107/64
[2017-04-29] MEDS: FERROUS SULFATE 325 MG EC TABLET PO SCH ×2 (06:42→16:44)
[2017-04-29 08:33] VITALS: BP 103/62
[2017-04-29] MEDS: FLUoxetine HCL 20 MG CAPSULE PO SCH (08:53)
[2017-04-29] MEDS: BENZTROPINE MESYLATE 0.5 MG TABLET PO SCH ×2 (08:53→16:44)
[2017-04-29] MEDS: NICOTINE 21 MG/24 HOUR PATCH TD SCH (08:53)
[2017-04-29] MEDS: CHOLECALCIFEROL (VIT D3) 1,000 UNITS TABLET PO SCH (08:53)
[2017-04-29 11:45] VITALS: BP 112/68
[2017-04-29] MEDS: IBUPROFEN 400 MG TABLET PO PRN (11:46)
[2017-04-29 12:50] VITALS: BP 116/72
[2017-04-29 16:27] VITALS: BP 128/82
[2017-04-30] MEDS: FERROUS SULFATE 325 MG EC TABLET PO SCH ×2 (06:19→16:25)
[2017-04-30 06:30] VITALS: BP 108/64
[2017-04-30 08:38] VITALS: BP 108/68
[2017-04-30] MEDS: CHOLECALCIFEROL (VIT D3) 1,000 UNITS TABLET PO SCH (10:00)
[2017-04-30] MEDS: BENZTROPINE MESYLATE 0.5 MG TABLET PO SCH ×2 (10:00→16:25)
[2017-04-30] MEDS: FLUoxetine HCL 20 MG CAPSULE PO SCH (10:01)
[2017-04-30] MEDS: NICOTINE 21 MG/24 HOUR PATCH TD SCH (10:01)
[2017-04-30] MEDS: IBUPROFEN 400 MG TABLET PO PRN (14:02)
[2017-04-30 14:04] VITALS: BP 112/71
[2017-04-30 16:36] VITALS: BP 118/66
[2017-05-01 06:42] VITALS: BP 110/65
[2017-05-01] MEDS: FERROUS SULFATE 325 MG EC TABLET PO SCH ×2 (06:42→16:46)
[2017-05-01 08:20] VITALS: BP 133/70
[2017-05-01] MEDS: FLUoxetine HCL 20 MG CAPSULE PO SCH (09:03)
[2017-05-01] MEDS: CHOLECALCIFEROL (VIT D3) 1,000 UNITS TABLET PO SCH (09:03)
[2017-05-01] MEDS: BENZTROPINE MESYLATE 0.5 MG TABLET PO SCH ×2 (09:03→16:46)
[2017-05-01] MEDS: NICOTINE 21 MG/24 HOUR PATCH TD SCH (09:04)
[2017-05-01] MEDS: IBUPROFEN 400 MG TABLET PO PRN (09:16)
[2017-05-01 16:45] VITALS: BP 104/66
[2017-05-02] MEDS: FERROUS SULFATE 325 MG EC TABLET PO SCH ×2 (06:38→17:15)
[2017-05-02 07:03] VITALS: BP 106/69
[2017-05-02] MEDS: BENZTROPINE MESYLATE 0.5 MG TABLET PO SCH ×2 (08:30→17:15)
[2017-05-02] MEDS: CHOLECALCIFEROL (VIT D3) 1,000 UNITS TABLET PO SCH (08:30)
[2017-05-02] MEDS: FLUoxetine HCL 20 MG CAPSULE PO SCH (08:30)
[2017-05-02] MEDS: NICOTINE 21 MG/24 HOUR PATCH TD SCH (08:30)
[2017-05-02 09:27] VITALS: BP 101/70
[2017-05-02 12:12] VITALS: BP 105/72
[2017-05-02] MEDS: IBUPROFEN 400 MG TABLET PO PRN (12:14)
[2017-05-02 13:15] VITALS: BP 110/70
[2017-05-02 17:56] VITALS: BP 124/70
[2017-05-03 06:20] VITALS: BP 113/68
[2017-05-03] MEDS: FERROUS SULFATE 325 MG EC TABLET PO SCH ×2 (06:31→16:51)
[2017-05-03] MEDS: FLUoxetine HCL 20 MG CAPSULE PO SCH (08:38)
[2017-05-03] MEDS: BENZTROPINE MESYLATE 0.5 MG TABLET PO SCH ×2 (08:38→16:51)
[2017-05-03] MEDS: NICOTINE 21 MG/24 HOUR PATCH TD SCH (08:38)
[2017-05-03] MEDS: CHOLECALCIFEROL (VIT D3) 1,000 UNITS TABLET PO SCH (08:38)
[2017-05-03 08:48] VITALS: BP 136/55
[2017-05-03 16:23] VITALS: BP 138/68
[2017-05-03] MEDS: IBUPROFEN 400 MG TABLET PO PRN (19:23)
[2017-05-03 19:24] VITALS: BP 125/66
[2017-05-04] MEDS: FERROUS SULFATE 325 MG EC TABLET PO SCH ×2 (06:22→16:48)
[2017-05-04 08:58] VITALS: BP 102/68
[2017-05-04] MEDS: FLUoxetine HCL 20 MG CAPSULE PO SCH (09:35)
[2017-05-04] MEDS: CHOLECALCIFEROL (VIT D3) 1,000 UNITS TABLET PO SCH (09:37)
[2017-05-04] MEDS: BENZTROPINE MESYLATE 0.5 MG TABLET PO SCH ×2 (09:38→16:48)
[2017-05-04] MEDS: NICOTINE 21 MG/24 HOUR PATCH TD SCH (09:42)
[2017-05-04 16:13] VITALS: BP 109/69
[2017-05-04] MEDS: IBUPROFEN 400 MG TABLET PO PRN (20:15)
[2017-05-05] MEDS: FERROUS SULFATE 325 MG EC TABLET PO SCH ×2 (06:30→16:42)
[2017-05-05 06:53] VITALS: BP 134/71
[2017-05-05 08:40] VITALS: BP 126/62
[2017-05-05] MEDS: FLUoxetine HCL 20 MG CAPSULE PO SCH (09:03)
[2017-05-05] MEDS: BENZTROPINE MESYLATE 0.5 MG TABLET PO SCH ×2 (09:04→16:42)
[2017-05-05] MEDS: CHOLECALCIFEROL (VIT D3) 1,000 UNITS TABLET PO SCH (09:04)
[2017-05-05] MEDS: NICOTINE 21 MG/24 HOUR PATCH TD SCH (09:07)
[2017-05-05 16:22] VITALS: BP 107/68
[2017-05-06 05:44] VITALS: BP 114/70
[2017-05-06] MEDS: FERROUS SULFATE 325 MG EC TABLET PO SCH ×2 (06:55→16:43)
[2017-05-06] MEDS: FLUoxetine HCL 20 MG CAPSULE PO SCH (08:30)
[2017-05-06] MEDS: CHOLECALCIFEROL (VIT D3) 1,000 UNITS TABLET PO SCH (08:30)
[2017-05-06] MEDS: BENZTROPINE MESYLATE 0.5 MG TABLET PO SCH ×2 (08:30→16:43)
[2017-05-06] MEDS: NICOTINE 21 MG/24 HOUR PATCH TD SCH (08:30)
[2017-05-06 08:48] VITALS: BP 100/56
[2017-05-06] MEDS: IBUPROFEN 400 MG TABLET PO PRN (12:35)
[2017-05-06 12:36] VITALS: BP 109/68
[2017-05-06 16:34] VITALS: BP 108/69
[2017-05-07] MEDS: FERROUS SULFATE 325 MG EC TABLET PO SCH ×2 (06:32→16:16)
[2017-05-07 06:39] VITALS: BP 120/81
[2017-05-07] MEDS: FLUoxetine HCL 20 MG CAPSULE PO SCH (08:23)
[2017-05-07] MEDS: NICOTINE 21 MG/24 HOUR PATCH TD SCH (08:23)
[2017-05-07] MEDS: CHOLECALCIFEROL (VIT D3) 1,000 UNITS TABLET PO SCH (08:23)
[2017-05-07] MEDS: BENZTROPINE MESYLATE 0.5 MG TABLET PO SCH ×2 (08:23→16:16)
[2017-05-07 09:11] VITALS: BP 100/68
[2017-05-07 13:42] VITALS: BP 100/70
[2017-05-07] MEDS: IBUPROFEN 400 MG TABLET PO PRN (13:42)
[2017-05-07 16:31] VITALS: BP 96/70
[2017-05-08] MEDS: FERROUS SULFATE 325 MG EC TABLET PO SCH ×2 (06:17→17:10)
[2017-05-08 07:10] VITALS: BP 100/62
[2017-05-08 08:13] VITALS: BP 104/64
[2017-05-08] MEDS: FLUoxetine HCL 20 MG CAPSULE PO SCH (08:20)
[2017-05-08] MEDS: BENZTROPINE MESYLATE 0.5 MG TABLET PO SCH ×2 (08:20→17:10)
[2017-05-08] MEDS: CHOLECALCIFEROL (VIT D3) 1,000 UNITS TABLET PO SCH (08:20)
[2017-05-08] MEDS: NICOTINE 21 MG/24 HOUR PATCH TD SCH (08:21)
[2017-05-08] MEDS: IBUPROFEN 400 MG TABLET PO PRN (11:04)
[2017-05-08 16:22] VITALS: BP 104/66
[2017-05-09 06:19] VITALS: BP 104/66
[2017-05-09] MEDS: FERROUS SULFATE 325 MG EC TABLET PO SCH ×2 (06:35→16:34)
[2017-05-09] MEDS: CHOLECALCIFEROL (VIT D3) 1,000 UNITS TABLET PO SCH (08:19)
[2017-05-09] MEDS: BENZTROPINE MESYLATE 0.5 MG TABLET PO SCH ×2 (08:19→16:34)
[2017-05-09] MEDS: FLUoxetine HCL 20 MG CAPSULE PO SCH (08:19)
[2017-05-09] MEDS: NICOTINE 21 MG/24 HOUR PATCH TD SCH (08:19)
[2017-05-09 08:44] VITALS: BP 99/65
[2017-05-09 16:00] VITALS: BP 110/68
[2017-05-10] MEDS: FERROUS SULFATE 325 MG EC TABLET PO SCH ×2 (06:57→16:22)
[2017-05-10 07:26] VITALS: BP 108/65
[2017-05-10 08:30] VITALS: BP 102/60
[2017-05-10] MEDS: NICOTINE 21 MG/24 HOUR PATCH TD SCH (09:45)
[2017-05-10] MEDS: FLUoxetine HCL 20 MG CAPSULE PO SCH (09:45)
[2017-05-10] MEDS: BENZTROPINE MESYLATE 0.5 MG TABLET PO SCH ×2 (09:45→16:22)
[2017-05-10] MEDS: CHOLECALCIFEROL (VIT D3) 1,000 UNITS TABLET PO SCH (09:45)
[2017-05-10 16:54] VITALS: BP 113/61
[2017-05-11 05:41] VITALS: BP 108/64
[2017-05-11] MEDS: FERROUS SULFATE 325 MG EC TABLET PO SCH ×2 (06:41→17:28)
[2017-05-11 08:48] VITALS: BP 100/64
[2017-05-11] MEDS: CHOLECALCIFEROL (VIT D3) 1,000 UNITS TABLET PO SCH (09:08)
[2017-05-11] MEDS: NICOTINE 21 MG/24 HOUR PATCH TD SCH (09:08)
[2017-05-11] MEDS: BENZTROPINE MESYLATE 0.5 MG TABLET PO SCH ×2 (09:08→17:28)
[2017-05-11] MEDS: FLUoxetine HCL 20 MG CAPSULE PO SCH (09:08)
[2017-05-11 16:00] VITALS: BP 112/70
[2017-05-12 03:47] VITALS: BP 113/71
[2017-05-12] MEDS: FERROUS SULFATE 325 MG EC TABLET PO SCH ×2 (07:03→16:30)
[2017-05-12 08:02] VITALS: BP 108/62
[2017-05-12] MEDS: FLUoxetine HCL 20 MG CAPSULE PO SCH (08:08)
[2017-05-12] MEDS: NICOTINE 21 MG/24 HOUR PATCH TD SCH (08:08)
[2017-05-12] MEDS: BENZTROPINE MESYLATE 0.5 MG TABLET PO SCH ×2 (08:08→16:30)
[2017-05-12] MEDS: CHOLECALCIFEROL (VIT D3) 1,000 UNITS TABLET PO SCH (08:08)
[2017-05-12 16:06] VITALS: BP 136/88
[2017-05-13 06:20] VITALS: BP 104/60
[2017-05-13] MEDS: FERROUS SULFATE 325 MG EC TABLET PO SCH ×2 (06:35→16:32)
[2017-05-13] MEDS: BENZTROPINE MESYLATE 0.5 MG TABLET PO SCH ×2 (08:18→16:32)
[2017-05-13] MEDS: NICOTINE 21 MG/24 HOUR PATCH TD SCH (08:18)
[2017-05-13] MEDS: FLUoxetine HCL 20 MG CAPSULE PO SCH (08:18)
[2017-05-13] MEDS: CHOLECALCIFEROL (VIT D3) 1,000 UNITS TABLET PO SCH (08:18)
[2017-05-13 09:13] VITALS: BP 116/69
[2017-05-13 16:47] VITALS: BP 116/68
[2017-05-14] MEDS: FERROUS SULFATE 325 MG EC TABLET PO SCH ×2 (06:42→16:20)
[2017-05-14 06:45] VITALS: BP 108/61
[2017-05-14 08:36] VITALS: BP 101/63
[2017-05-14] MEDS: FLUoxetine HCL 20 MG CAPSULE PO SCH (08:55)
[2017-05-14] MEDS: NICOTINE 21 MG/24 HOUR PATCH TD SCH (08:55)
[2017-05-14] MEDS: CHOLECALCIFEROL (VIT D3) 1,000 UNITS TABLET PO SCH (08:55)
[2017-05-14] MEDS: BENZTROPINE MESYLATE 0.5 MG TABLET PO SCH ×2 (08:55→16:20)
[2017-05-14 17:29] VITALS: BP 106/68
[2017-05-15 08:48] VITALS: BP 106/65
[2017-05-15] MEDS: FLUoxetine HCL 20 MG CAPSULE PO SCH (08:49)
[2017-05-15 16:19] VITALS: BP 105/67
[2017-05-16 06:26] VITALS: BP 109/70
[2017-05-16 08:24] VITALS: BP 106/74
[2017-05-16] MEDS: FLUoxetine HCL 20 MG CAPSULE PO SCH (08:44)
[2017-05-16 16:15] VITALS: BP 117/63
[2017-05-17 00:20] VITALS: BP 105/62
[2017-05-17 08:14] VITALS: BP 118/66
[2017-05-17] MEDS: FLUoxetine HCL 20 MG CAPSULE PO SCH (08:47)
[2017-05-17 16:00] VITALS: BP 110/74
[2017-05-18 06:46] VITALS: BP 103/65
[2017-05-18 08:18] LABS: BASOPHILS % (AUTO) 0.2 % (0.0-2.0); EOSINOPHILS % (AUTO) 1.6 % (1.0-6.0); HEMATOCRIT 37.2 % (36-46); HEMOGLOBIN 12.8 g/dL (12.0-16.0); LYMPHOCYTES # (AUTO) 2.8 K/uL (1.0-4.8); LYMPHOCYTES % (AUTO) 37.2 % (22.0-44.0); MEAN CORPUSCULAR HEMOGLOBIN 32.5 pg (26.0-34.0); MEAN CORPUSCULAR HGB CONC 34.5 G/dL (31.0-37.0); MEAN CORPUSCULAR VOLUME 94 fL (80-100); MONOCYTES # (AUTO) 0.7 K/uL (0.1-1.0); MONOCYTES % (AUTO) 9.5 % (2.0-9.0); NEUTROPHILS # (AUTO) 3.9 K/uL (1.8-7.7); NEUTROPHILS % (AUTO) 51.5 % (40.0-70.0); PLATELET COUNT (AUTO) 150 K/uL (150-450); RED BLOOD CELL COUNT(AUTO) 3.95 MIL/uL (4.00-5.20); RED CELL DISTRIBUTION WIDTH 13.7 % (11.5-14.5); WHITE BLOOD COUNT (AUTO) 7.6 K/uL (4.5-11.0)
[2017-05-18] MEDS: FLUoxetine HCL 20 MG CAPSULE PO SCH (08:32)
[2017-05-18 09:12] VITALS: BP 106/60
[2017-05-18 09:35] LABS: ALANINE AMINOTRANSFERASE 44 U/L (12-78); ALBUMIN 3.6 g/dL (3.4-5.0); ANION GAP 6 mmol/L (8-16); ASPARTATE AMINOTRANSFERASE 23 U/L (15-37); BILIRUBIN,TOTAL 0.3 mg/dL (0.1-1.0); CALCIUM, TOTAL 9.2 mg/dL (8.8-10.5); CARBON DIOXIDE 30 mmol/L (22-29); CHLORIDE 102 mmol/L (98-107); CREATININE 0.69 mg/dL (0.60-1.30); GLOMERULAR FILTR. RATE CALC > 60 mL/min (>60); POTASSIUM 4.3 mmol/L (3.5-5.1); SODIUM SERUM 138 mmol/L (136-145); UREA NITROGEN, BLOOD 13 mg/dL (7-18)
[2017-05-18 16:00] VITALS: BP 106/62
[2017-05-19 01:39] VITALS: BP 115/60
[2017-05-19 08:09] VITALS: BP 102/63
[2017-05-19] MEDS: FLUoxetine HCL 20 MG CAPSULE PO SCH (08:33)
[2017-05-19 16:00] VITALS: BP 104/60
[2017-05-20 01:19] VITALS: BP 105/65
[2017-05-20 08:11] VITALS: BP 100/60
[2017-05-20] MEDS: FLUoxetine HCL 20 MG CAPSULE PO SCH (08:34)
[2017-05-20 16:24] VITALS: BP 117/67
[2017-05-21 02:19] VITALS: BP 106/60
[2017-05-21 08:09] VITALS: BP 104/56
[2017-05-21] MEDS: FLUoxetine HCL 20 MG CAPSULE PO SCH (08:14)
[2017-05-21 16:07] VITALS: BP 108/70
[2017-05-22 06:15] VITALS: BP 117/69
[2017-05-22] MEDS: FLUoxetine HCL 20 MG CAPSULE PO SCH (08:26)
[2017-05-22 08:27] VITALS: BP 100/60
[2017-05-22 16:00] VITALS: BP 122/84
[2017-05-23 06:21] VITALS: BP 119/71
[2017-05-23] MEDS: FLUoxetine HCL 20 MG CAPSULE PO SCH (08:19)
[2017-05-23 08:28] VITALS: BP 98/59
[2017-05-23 16:33] VITALS: BP 108/67
[2017-05-24 01:52] VITALS: BP 102/62
[2017-05-24 08:17] VITALS: BP 100/60
[2017-05-24] MEDS: FLUoxetine HCL 20 MG CAPSULE PO SCH (08:35)
[2017-05-24 16:20] VITALS: BP 106/64
[2017-05-25 06:17] VITALS: BP 102/63
[2017-05-25] MEDS: FLUoxetine HCL 20 MG CAPSULE PO SCH (08:46)
[2017-05-25 10:29] VITALS: BP 111/63
[2017-05-25 16:21] VITALS: BP 129/95
[2017-05-26 05:37] VITALS: BP 110/68
[2017-05-26] MEDS: FLUoxetine HCL 20 MG CAPSULE PO SCH (08:42)
[2017-05-26 08:45] VITALS: BP 106/63
[2017-05-26 16:27] VITALS: BP 116/88
[2017-05-27 01:45] VITALS: BP 110/62
[2017-05-27 08:00] VITALS: BP 116/88
[2017-05-27] MEDS ORDERED: DiphenhydrAMINE HCL 50 MG/ML VIAL IM ONE (09:00)
[2017-05-27] MEDS ORDERED: DiphenhydrAMINE HCL 50 MG/ML VIAL ONE (09:00)
[2017-05-27 09:12] VITALS: BP 116/88
[2017-05-27] MEDS: FLUoxetine HCL 20 MG CAPSULE PO SCH (09:17)
[2017-05-27] MEDS ORDERED: HALOPERIDOL 5 MG TABLET PO PRN (09:45)
[2017-05-27] MEDS: BENZTROPINE MESYLATE 1 MG TABLET PO SCH ×2 (10:26→16:48)
[2017-05-27] MEDS: LORazepam 2 MG TABLET PO PRN (10:26)
[2017-05-27 10:30] VITALS: BP 126/73
[2017-05-27 16:21] VITALS: BP 106/69
[2017-05-27] MEDS: ARIPiprazole ER SUSPENSION 400 MG PRE-FILLED DUAL CHAMBER SYRINGE IM SCH (16:48)
[2017-05-27] MEDS: DIVALPROEX SODIUM 500 MG DR TABLET PO SCH (20:46)
[2017-05-28 00:10] VITALS: BP 100/62
[2017-05-28] MEDS: LORazepam 2 MG TABLET PO PRN ×3 (04:48→16:06)
[2017-05-28] MEDS: CHOLECALCIFEROL (VIT D3) 1,000 UNITS TABLET PO SCH (08:45)
[2017-05-28] MEDS: FLUoxetine HCL 20 MG CAPSULE PO SCH (08:45)
[2017-05-28] MEDS: BENZTROPINE MESYLATE 1 MG TABLET PO SCH ×2 (08:45→16:32)
[2017-05-28 09:14] VITALS: BP 114/71
[2017-05-28 16:00] VITALS: BP 106/68
[2017-05-28] MEDS: FERROUS SULFATE 325 MG EC TABLET PO SCH (16:32)
[2017-05-28] MEDS: DIVALPROEX SODIUM 500 MG DR TABLET PO SCH (20:41)
[2017-05-29 05:06] VITALS: BP 112/63
[2017-05-29] MEDS: FERROUS SULFATE 325 MG EC TABLET PO SCH ×2 (07:01→16:05)
[2017-05-29 08:29] VITALS: BP 109/82
[2017-05-29] MEDS: CHOLECALCIFEROL (VIT D3) 1,000 UNITS TABLET PO SCH (08:42)
[2017-05-29] MEDS: BENZTROPINE MESYLATE 1 MG TABLET PO SCH ×2 (08:42→16:04)
[2017-05-29] MEDS: FLUoxetine HCL 20 MG CAPSULE PO SCH (08:42)
[2017-05-29 16:00] VITALS: BP 124/73
[2017-05-29] MEDS: LORazepam 2 MG TABLET PO PRN (16:04)
[2017-05-29] MEDS: DIVALPROEX SODIUM 500 MG DR TABLET PO SCH (20:09)
[2017-05-30 06:32] VITALS: BP 115/66
[2017-05-30] MEDS: LORazepam 2 MG TABLET PO PRN (06:45)
[2017-05-30] MEDS: FERROUS SULFATE 325 MG EC TABLET PO SCH ×2 (06:45→16:12)
[2017-05-30 08:08] VITALS: BP 92/61
[2017-05-30] MEDS: CHOLECALCIFEROL (VIT D3) 1,000 UNITS TABLET PO SCH (08:30)
[2017-05-30] MEDS: BENZTROPINE MESYLATE 1 MG TABLET PO SCH ×2 (08:30→16:12)
[2017-05-30] MEDS: FLUoxetine HCL 20 MG CAPSULE PO SCH (08:30)
[2017-05-30 12:18] VITALS: BP 103/63
[2017-05-30 16:25] VITALS: BP 111/77
[2017-05-30] MEDS: DIVALPROEX SODIUM 500 MG DR TABLET PO SCH (20:20)
[2017-05-31 06:24] VITALS: BP 105/70
[2017-05-31] MEDS: FERROUS SULFATE 325 MG EC TABLET PO SCH ×2 (07:10→16:49)
[2017-05-31] MEDS: FLUoxetine HCL 20 MG CAPSULE PO SCH (08:20)
[2017-05-31] MEDS: BENZTROPINE MESYLATE 1 MG TABLET PO SCH ×2 (08:20→16:49)
[2017-05-31] MEDS: CHOLECALCIFEROL (VIT D3) 1,000 UNITS TABLET PO SCH (08:20)
[2017-05-31 08:53] VITALS: BP 105/66
[2017-05-31] MEDS: LORazepam 2 MG TABLET PO PRN (13:47)
[2017-05-31 16:09] VITALS: BP 114/73
[2017-05-31] MEDS: DIVALPROEX SODIUM 500 MG DR TABLET PO SCH (20:49)
[2017-06-01] MEDS: FERROUS SULFATE 325 MG EC TABLET PO SCH ×2 (07:03→16:56)
[2017-06-01] MEDS: FLUoxetine HCL 20 MG CAPSULE PO SCH (08:45)
[2017-06-01] MEDS: CHOLECALCIFEROL (VIT D3) 1,000 UNITS TABLET PO SCH (08:45)
[2017-06-01] MEDS: BENZTROPINE MESYLATE 1 MG TABLET PO SCH ×2 (08:45→16:56)
[2017-06-01 15:11] VITALS: BP 100/68
[2017-06-01 16:48] VITALS: BP 110/69
[2017-06-01] MEDS: LORazepam 2 MG TABLET PO PRN (18:11)
[2017-06-01] MEDS: DIVALPROEX SODIUM 500 MG DR TABLET PO SCH (21:28)
[2017-06-02] MEDS: FERROUS SULFATE 325 MG EC TABLET PO SCH ×2 (06:38→16:05)
[2017-06-02 06:47] VITALS: BP 124/74
[2017-06-02] MEDS: CHOLECALCIFEROL (VIT D3) 1,000 UNITS TABLET PO SCH (08:15)
[2017-06-02] MEDS: BENZTROPINE MESYLATE 1 MG TABLET PO SCH ×2 (08:15→16:05)
[2017-06-02] MEDS: LORazepam 2 MG TABLET PO PRN (08:15)
[2017-06-02] MEDS: FLUoxetine HCL 20 MG CAPSULE PO SCH (08:15)
[2017-06-02 08:33] VITALS: BP 108/74
[2017-06-02 16:00] VITALS: BP 126/81
[2017-06-02] MEDS: DIVALPROEX SODIUM 500 MG DR TABLET PO SCH (21:01)
[2017-06-03 06:00] VITALS: BP 107/71
[2017-06-03] MEDS: FERROUS SULFATE 325 MG EC TABLET PO SCH ×2 (06:39→16:36)
[2017-06-03] MEDS: BENZTROPINE MESYLATE 1 MG TABLET PO SCH ×2 (08:49→16:36)
[2017-06-03] MEDS: FLUoxetine HCL 20 MG CAPSULE PO SCH (08:49)
[2017-06-03] MEDS: CHOLECALCIFEROL (VIT D3) 1,000 UNITS TABLET PO SCH (08:49)
[2017-06-03 08:51] VITALS: BP 97/61
[2017-06-03] MEDS: LORazepam 2 MG TABLET PO PRN (12:40)
[2017-06-03 16:24] VITALS: BP 116/69
[2017-06-03] MEDS: DIVALPROEX SODIUM 500 MG DR TABLET PO SCH (20:53)
[2017-06-04 06:33] VITALS: BP 101/65
[2017-06-04] MEDS: LORazepam 2 MG TABLET PO PRN (06:56)
[2017-06-04] MEDS: FERROUS SULFATE 325 MG EC TABLET PO SCH ×2 (06:57→16:26)
[2017-06-04] MEDS: BENZTROPINE MESYLATE 1 MG TABLET PO SCH ×2 (08:16→16:26)
[2017-06-04] MEDS: FLUoxetine HCL 20 MG CAPSULE PO SCH (08:16)
[2017-06-04] MEDS: CHOLECALCIFEROL (VIT D3) 1,000 UNITS TABLET PO SCH (08:16)
[2017-06-04 08:41] VITALS: BP 110/70
[2017-06-04 16:22] VITALS: BP 106/71
[2017-06-04] MEDS: DIVALPROEX SODIUM 500 MG DR TABLET PO SCH (20:43)
[2017-06-05 06:37] VITALS: BP 118/83
[2017-06-05] MEDS: FERROUS SULFATE 325 MG EC TABLET PO SCH ×2 (06:46→16:18)
[2017-06-05] MEDS: FLUoxetine HCL 20 MG CAPSULE PO SCH (08:06)
[2017-06-05] MEDS: CHOLECALCIFEROL (VIT D3) 1,000 UNITS TABLET PO SCH (08:06)
[2017-06-05] MEDS: BENZTROPINE MESYLATE 1 MG TABLET PO SCH ×2 (08:06→16:18)
[2017-06-05] MEDS: LORazepam 2 MG TABLET PO PRN (08:06)
[2017-06-05 08:22] VITALS: BP 109/69
[2017-06-05 16:10] VITALS: BP 101/72
[2017-06-05] MEDS: DIVALPROEX SODIUM 500 MG DR TABLET PO SCH (20:15)
[2017-06-06 06:43] VITALS: BP 131/60
[2017-06-06] MEDS: FERROUS SULFATE 325 MG EC TABLET PO SCH ×2 (06:55→17:05)
[2017-06-06] MEDS: CHOLECALCIFEROL (VIT D3) 1,000 UNITS TABLET PO SCH (08:23)
[2017-06-06] MEDS: FLUoxetine HCL 20 MG CAPSULE PO SCH (08:24)
[2017-06-06] MEDS: BENZTROPINE MESYLATE 1 MG TABLET PO SCH ×2 (08:24→17:05)
[2017-06-06 09:28] VITALS: BP 100/67
[2017-06-06 16:27] VITALS: BP 105/72
[2017-06-06] MEDS: DIVALPROEX SODIUM 500 MG DR TABLET PO SCH (20:54)
[2017-06-07 06:51] VITALS: BP 108/71
[2017-06-07] MEDS: FERROUS SULFATE 325 MG EC TABLET PO SCH ×2 (07:10→16:33)
[2017-06-07 08:15] VITALS: BP 105/64
[2017-06-07] MEDS: BENZTROPINE MESYLATE 1 MG TABLET PO SCH ×2 (09:23→16:33)
[2017-06-07] MEDS: FLUoxetine HCL 20 MG CAPSULE PO SCH (09:23)
[2017-06-07] MEDS: CHOLECALCIFEROL (VIT D3) 1,000 UNITS TABLET PO SCH (09:23)
[2017-06-07] MEDS: LORazepam 2 MG TABLET PO PRN (10:00)
[2017-06-07 16:14] VITALS: BP 110/67
[2017-06-07] MEDS: DIVALPROEX SODIUM 500 MG DR TABLET PO SCH (20:48)
[2017-06-08 05:06] VITALS: BP 106/68
[2017-06-08] MEDS: FERROUS SULFATE 325 MG EC TABLET PO SCH ×2 (06:41→17:17)
[2017-06-08] MEDS: FLUoxetine HCL 20 MG CAPSULE PO SCH (08:01)
[2017-06-08] MEDS: BENZTROPINE MESYLATE 1 MG TABLET PO SCH ×2 (08:01→17:17)
[2017-06-08] MEDS: CHOLECALCIFEROL (VIT D3) 1,000 UNITS TABLET PO SCH (08:01)
[2017-06-08 08:47] VITALS: BP 100/65
[2017-06-08 16:18] VITALS: BP 112/69
[2017-06-08] MEDS: DIVALPROEX SODIUM 500 MG DR TABLET PO SCH (20:42)
[2017-06-09 00:01] VITALS: BP 110/72
[2017-06-09] MEDS: FERROUS SULFATE 325 MG EC TABLET PO SCH ×2 (06:48→16:42)
[2017-06-09 08:35] VITALS: BP 110/67
[2017-06-09] MEDS: BENZTROPINE MESYLATE 1 MG TABLET PO SCH ×2 (09:00→16:42)
[2017-06-09] MEDS: CHOLECALCIFEROL (VIT D3) 1,000 UNITS TABLET PO SCH (09:00)
[2017-06-09] MEDS: FLUoxetine HCL 20 MG CAPSULE PO SCH (09:00)
[2017-06-09 16:33] VITALS: BP 104/63
[2017-06-09] MEDS: NICOTINE 21 MG/24 HOUR PATCH TD SCH (16:42)
[2017-06-09] MEDS: DIVALPROEX SODIUM 500 MG DR TABLET PO SCH (20:35)
[2017-06-10] MEDS: FERROUS SULFATE 325 MG EC TABLET PO SCH ×2 (06:52→16:47)
[2017-06-10 06:54] VITALS: BP 108/65
[2017-06-10 08:52] VITALS: BP 115/60
[2017-06-10] MEDS: CHOLECALCIFEROL (VIT D3) 1,000 UNITS TABLET PO SCH (09:04)
[2017-06-10] MEDS: FLUoxetine HCL 20 MG CAPSULE PO SCH (09:04)
[2017-06-10] MEDS: BENZTROPINE MESYLATE 1 MG TABLET PO SCH ×2 (09:04→16:47)
[2017-06-10] MEDS: NICOTINE 21 MG/24 HOUR PATCH TD SCH (09:05)
[2017-06-10 16:28] VITALS: BP 111/60
[2017-06-10] MEDS: DIVALPROEX SODIUM 500 MG DR TABLET PO SCH (20:41)
[2017-06-11] MEDS: FERROUS SULFATE 325 MG EC TABLET PO SCH ×2 (06:33→16:22)
[2017-06-11 06:37] VITALS: BP 138/74
[2017-06-11 09:00] VITALS: BP 100/63
[2017-06-11] MEDS: FLUoxetine HCL 20 MG CAPSULE PO SCH (09:33)
[2017-06-11] MEDS: CHOLECALCIFEROL (VIT D3) 1,000 UNITS TABLET PO SCH (09:33)
[2017-06-11] MEDS: BENZTROPINE MESYLATE 1 MG TABLET PO SCH ×2 (09:33→16:22)
[2017-06-11] MEDS: NICOTINE 21 MG/24 HOUR PATCH TD SCH (09:34)
[2017-06-11] MEDS ORDERED: LOPERAMIDE HCL 2 MG CAPSULE PO PRN (09:45)
[2017-06-11 16:00] VITALS: BP 100/58
[2017-06-11] MEDS: DIVALPROEX SODIUM 500 MG DR TABLET PO SCH (20:45)
[2017-06-12] MEDS: FERROUS SULFATE 325 MG EC TABLET PO SCH ×2 (06:25→16:48)
[2017-06-12 06:38] VITALS: BP 124/61
[2017-06-12 09:12] VITALS: BP 96/64
[2017-06-12] MEDS: CHOLECALCIFEROL (VIT D3) 1,000 UNITS TABLET PO SCH (09:24)
[2017-06-12] MEDS: BENZTROPINE MESYLATE 1 MG TABLET PO SCH ×2 (09:24→16:48)
[2017-06-12] MEDS: FLUoxetine HCL 20 MG CAPSULE PO SCH (09:24)
[2017-06-12] MEDS: NICOTINE 21 MG/24 HOUR PATCH TD SCH (10:09)
[2017-06-12 16:20] VITALS: BP 102/62
[2017-06-12] MEDS: DIVALPROEX SODIUM 500 MG DR TABLET PO SCH (20:44)
[2017-06-13 05:50] VITALS: BP 109/69
[2017-06-13] MEDS: FERROUS SULFATE 325 MG EC TABLET PO SCH ×2 (06:26→16:37)
[2017-06-13 08:49] VITALS: BP 113/63
[2017-06-13] MEDS: FLUoxetine HCL 20 MG CAPSULE PO SCH (08:53)
[2017-06-13] MEDS: NICOTINE 21 MG/24 HOUR PATCH TD SCH (08:53)
[2017-06-13] MEDS: BENZTROPINE MESYLATE 1 MG TABLET PO SCH ×2 (08:53→16:37)
[2017-06-13] MEDS: CHOLECALCIFEROL (VIT D3) 1,000 UNITS TABLET PO SCH (08:53)
[2017-06-13 16:24] VITALS: BP 112/64
[2017-06-13] MEDS: DIVALPROEX SODIUM 500 MG DR TABLET PO SCH (20:58)
[2017-06-14 06:02] VITALS: BP 101/63
[2017-06-14] MEDS: FERROUS SULFATE 325 MG EC TABLET PO SCH ×2 (06:46→16:46)
[2017-06-14 08:27] VITALS: BP 101/67
[2017-06-14] MEDS: BENZTROPINE MESYLATE 1 MG TABLET PO SCH ×2 (10:01→16:46)
[2017-06-14] MEDS: FLUoxetine HCL 20 MG CAPSULE PO SCH (10:01)
[2017-06-14] MEDS: NICOTINE 21 MG/24 HOUR PATCH TD SCH (10:01)
[2017-06-14] MEDS: CHOLECALCIFEROL (VIT D3) 1,000 UNITS TABLET PO SCH (10:02)
[2017-06-14 16:20] VITALS: BP 110/68
[2017-06-14] MEDS: DIVALPROEX SODIUM 500 MG DR TABLET PO SCH (20:58)
[2017-06-15] MEDS: FERROUS SULFATE 325 MG EC TABLET PO SCH ×2 (06:30→16:31)
[2017-06-15] MEDS: CHOLECALCIFEROL (VIT D3) 1,000 UNITS TABLET PO SCH (08:53)
[2017-06-15] MEDS: FLUoxetine HCL 20 MG CAPSULE PO SCH (08:53)
[2017-06-15] MEDS: BENZTROPINE MESYLATE 1 MG TABLET PO SCH ×2 (08:53→16:31)
[2017-06-15] MEDS: NICOTINE 21 MG/24 HOUR PATCH TD SCH (08:53)
[2017-06-15 09:56] VITALS: BP 92/50
[2017-06-15] MEDS: DIVALPROEX SODIUM 500 MG DR TABLET PO SCH (20:19)
[2017-06-15 20:20] VITALS: BP 98/58
[2017-06-16 06:39] VITALS: BP 113/61
[2017-06-16] MEDS: FERROUS SULFATE 325 MG EC TABLET PO SCH ×2 (06:52→16:37)
[2017-06-16 08:11] VITALS: BP 104/60
[2017-06-16] MEDS: BENZTROPINE MESYLATE 1 MG TABLET PO SCH ×2 (10:10→16:37)
[2017-06-16] MEDS: NICOTINE 21 MG/24 HOUR PATCH TD SCH (10:10)
[2017-06-16] MEDS: FLUoxetine HCL 20 MG CAPSULE PO SCH (10:10)
[2017-06-16] MEDS: CHOLECALCIFEROL (VIT D3) 1,000 UNITS TABLET PO SCH (10:10)
[2017-06-16 16:24] VITALS: BP 92/51
[2017-06-16] MEDS: DIVALPROEX SODIUM 500 MG DR TABLET PO SCH (20:30)
[2017-06-17 00:08] VITALS: BP 103/60
[2017-06-17] MEDS: FERROUS SULFATE 325 MG EC TABLET PO SCH ×2 (06:30→16:52)
[2017-06-17] MEDS: FLUoxetine HCL 20 MG CAPSULE PO SCH (08:53)
[2017-06-17] MEDS: BENZTROPINE MESYLATE 1 MG TABLET PO SCH ×2 (08:53→16:52)
[2017-06-17] MEDS: NICOTINE 21 MG/24 HOUR PATCH TD SCH (08:53)
[2017-06-17] MEDS: CHOLECALCIFEROL (VIT D3) 1,000 UNITS TABLET PO SCH (08:53)
[2017-06-17 09:01] VITALS: BP 93/60
[2017-06-17 16:41] VITALS: BP 118/66
[2017-06-17] MEDS: DIVALPROEX SODIUM 500 MG DR TABLET PO SCH (20:42)
[2017-06-18] MEDS: FERROUS SULFATE 325 MG EC TABLET PO SCH ×2 (06:35→17:26)
[2017-06-18 06:59] VITALS: BP 110/67
[2017-06-18] MEDS: BENZTROPINE MESYLATE 1 MG TABLET PO SCH ×2 (08:41→17:26)
[2017-06-18] MEDS: CHOLECALCIFEROL (VIT D3) 1,000 UNITS TABLET PO SCH (08:41)
[2017-06-18] MEDS: FLUoxetine HCL 20 MG CAPSULE PO SCH (08:41)
[2017-06-18] MEDS: NICOTINE 21 MG/24 HOUR PATCH TD SCH (08:42)
[2017-06-18 09:11] VITALS: BP 114/60
[2017-06-18 16:29] VITALS: BP 106/72
[2017-06-18] MEDS: DIVALPROEX SODIUM 500 MG DR TABLET PO SCH (20:35)
[2017-06-19 06:11] VITALS: BP 114/77
[2017-06-19] MEDS: FERROUS SULFATE 325 MG EC TABLET PO SCH ×2 (06:49→17:05)
[2017-06-19] MEDS: FLUoxetine HCL 20 MG CAPSULE PO SCH (09:00)
[2017-06-19] MEDS: CHOLECALCIFEROL (VIT D3) 1,000 UNITS TABLET PO SCH (09:00)
[2017-06-19] MEDS: NICOTINE 21 MG/24 HOUR PATCH TD SCH (09:00)
[2017-06-19] MEDS: BENZTROPINE MESYLATE 1 MG TABLET PO SCH ×2 (09:00→17:05)
[2017-06-19 10:31] VITALS: BP 90/60
[2017-06-19 16:35] VITALS: BP 115/72
[2017-06-19] MEDS: DIVALPROEX SODIUM 500 MG DR TABLET PO SCH (21:19)
[2017-06-20 06:37] VITALS: BP 101/60
[2017-06-20] MEDS: FERROUS SULFATE 325 MG EC TABLET PO SCH ×2 (06:45→17:25)
[2017-06-20 08:31] VITALS: BP 96/64
[2017-06-20] MEDS: FLUoxetine HCL 20 MG CAPSULE PO SCH (09:05)
[2017-06-20] MEDS: CHOLECALCIFEROL (VIT D3) 1,000 UNITS TABLET PO SCH (09:05)
[2017-06-20] MEDS: BENZTROPINE MESYLATE 1 MG TABLET PO SCH ×2 (09:06→17:24)
[2017-06-20] MEDS: NICOTINE 21 MG/24 HOUR PATCH TD SCH (09:06)
[2017-06-20 16:30] VITALS: BP 99/63
[2017-06-20] MEDS: DIVALPROEX SODIUM 500 MG DR TABLET PO SCH (21:09)
[2017-06-21] MEDS: FERROUS SULFATE 325 MG EC TABLET PO SCH ×2 (06:36→17:09)
[2017-06-21 06:49] VITALS: BP 108/67
[2017-06-21 08:13] VITALS: BP 100/65
[2017-06-21] MEDS: FLUoxetine HCL 20 MG CAPSULE PO SCH (09:10)
[2017-06-21] MEDS: CHOLECALCIFEROL (VIT D3) 1,000 UNITS TABLET PO SCH (09:10)
[2017-06-21] MEDS: BENZTROPINE MESYLATE 1 MG TABLET PO SCH ×2 (09:10→17:09)
[2017-06-21] MEDS: NICOTINE 21 MG/24 HOUR PATCH TD SCH (09:11)
[2017-06-21] MEDS ORDERED: TUBERCULIN, PURIFIED PROTEIN DERIVATIVE 5 TU/0.1 ML SYG ID ONE (12:00)
[2017-06-21 16:24] VITALS: BP 104/67
[2017-06-21] MEDS: DIVALPROEX SODIUM 500 MG DR TABLET PO SCH (20:43)
[2017-06-22] MEDS: FERROUS SULFATE 325 MG EC TABLET PO SCH ×2 (06:42→17:14)
[2017-06-22 07:16] VITALS: BP 110/71
[2017-06-22 08:56] VITALS: BP 105/63
[2017-06-22] MEDS: NICOTINE 21 MG/24 HOUR PATCH TD SCH (10:00)
[2017-06-22] MEDS: CHOLECALCIFEROL (VIT D3) 1,000 UNITS TABLET PO SCH (10:00)
[2017-06-22] MEDS: BENZTROPINE MESYLATE 1 MG TABLET PO SCH ×2 (10:00→17:14)
[2017-06-22] MEDS: FLUoxetine HCL 20 MG CAPSULE PO SCH (10:00)
[2017-06-22 16:30] VITALS: BP 109/68
[2017-06-22] MEDS: DIVALPROEX SODIUM 500 MG DR TABLET PO SCH (20:39)
[2017-06-23 05:37] VITALS: BP 100/72
[2017-06-23] MEDS: FERROUS SULFATE 325 MG EC TABLET PO SCH ×2 (06:37→16:23)
[2017-06-23 08:02] VITALS: BP 105/65
[2017-06-23] MEDS: CHOLECALCIFEROL (VIT D3) 1,000 UNITS TABLET PO SCH (09:12)
[2017-06-23] MEDS: FLUoxetine HCL 20 MG CAPSULE PO SCH (09:12)
[2017-06-23] MEDS: BENZTROPINE MESYLATE 1 MG TABLET PO SCH ×2 (09:12→16:23)
[2017-06-23] MEDS: NICOTINE 21 MG/24 HOUR PATCH TD SCH (09:12)
[2017-06-23 19:47] VITALS: BP 133/78
[2017-06-23] MEDS: DIVALPROEX SODIUM 500 MG DR TABLET PO SCH (20:24)
[2017-06-24 06:25] VITALS: BP 103/60
[2017-06-24] MEDS: FERROUS SULFATE 325 MG EC TABLET PO SCH ×2 (06:26→16:31)
[2017-06-24 08:30] VITALS: BP 108/64
[2017-06-24] MEDS: NICOTINE 21 MG/24 HOUR PATCH TD SCH (10:07)
[2017-06-24] MEDS: ARIPiprazole ER SUSPENSION 400 MG PRE-FILLED DUAL CHAMBER SYRINGE IM SCH (10:07)
[2017-06-24] MEDS: BENZTROPINE MESYLATE 1 MG TABLET PO SCH ×2 (10:08→16:32)
[2017-06-24] MEDS: CHOLECALCIFEROL (VIT D3) 1,000 UNITS TABLET PO SCH (10:08)
[2017-06-24] MEDS: FLUoxetine HCL 20 MG CAPSULE PO SCH (10:08)
[2017-06-24 16:39] VITALS: BP 106/72
[2017-06-24] MEDS: DIVALPROEX SODIUM 500 MG DR TABLET PO SCH (20:19)
[2017-06-25] MEDS: FERROUS SULFATE 325 MG EC TABLET PO SCH ×2 (06:44→17:15)
[2017-06-25 07:04] VITALS: BP 113/68
[2017-06-25 08:47] VITALS: BP 100/68
[2017-06-25] MEDS: CHOLECALCIFEROL (VIT D3) 1,000 UNITS TABLET PO SCH (09:19)
[2017-06-25] MEDS: BENZTROPINE MESYLATE 1 MG TABLET PO SCH ×2 (09:19→17:15)
[2017-06-25] MEDS: FLUoxetine HCL 20 MG CAPSULE PO SCH (09:20)
[2017-06-25] MEDS: NICOTINE 21 MG/24 HOUR PATCH TD SCH (09:20)
[2017-06-25 16:42] VITALS: BP 105/66
[2017-06-25] MEDS: DIVALPROEX SODIUM 500 MG DR TABLET PO SCH (20:35)
[2017-06-26 00:12] VITALS: BP 102/72
[2017-06-26] MEDS: FERROUS SULFATE 325 MG EC TABLET PO SCH (06:38)
[2017-06-26] MEDS ORDERED: ARIPiprazole ER SUSPENSION 400 MG PRE-FILLED DUAL CHAMBER SYRINGE IM SCH (08:00)
[2017-06-26 08:12] VITALS: BP 93/64
[2017-06-26] MEDS ORDERED: FLUO-191 PO (08:21)
[2017-06-26] MEDS ORDERED: ARIP400S IM (08:21)
[2017-06-26] MEDS ORDERED: DIVA500T35 PO (08:21)
[2017-06-26] MEDS ORDERED: BENZ1TAB10 PO (08:21)
[2017-06-26] MEDS ORDERED: NICO21T TD (08:21)
[2017-06-26] MEDS: CHOLECALCIFEROL (VIT D3) 1,000 UNITS TABLET PO SCH (09:05)
[2017-06-26] MEDS: BENZTROPINE MESYLATE 1 MG TABLET PO SCH (09:05)
[2017-06-26] MEDS: NICOTINE 21 MG/24 HOUR PATCH TD SCH (09:05)
[2017-06-26] MEDS: FLUoxetine HCL 20 MG CAPSULE PO SCH (09:05)
== END 2017-06-26 11:55 | disposition home or self-care (01) | DRG 750 ==
LOC: EMS 17:56 → B3A 20:48 → B2S 05-15 21:00
PROVIDERS: ADMIT Psychiatry & Neurology Psychiatry; ATTEND Psychiatry & Neurology Psychiatry
DX: F25.0 Schizoaffective disorder, bipolar type (principal); Z78.1 Physical restraint status; E55.9 Vitamin D deficiency, unspecified; F22 Delusional disorders; D64.9 Anemia, unspecified; E87.6 Hypokalemia; F10.10 Alcohol abuse, uncomplicated; F15.90 Other stimulant use, unspecified, uncomplicated; F17.200 Nicotine dependence, unspecified, uncomplicated; F41.9 Anxiety disorder, unspecified; G80.9 Cerebral palsy, unspecified; J45.909 Unspecified asthma, uncomplicated
CPT/HCPCS: 83036; 84132; 84443; 87081; 96372; 99285; G0480; J0401; J1200; J1630; J2060; J3535